=== PATIENT | female | born 1975 | race Caucasian/White ===

== ENCOUNTER 2019-10-08 07:44 | Outpatient (CLI) | payer BC, OTHER, SELFPAY ==
--- NOTE | 2019-10-08 08:06 | US_ITS ---
WS: [id number] RIGHT UPPER QUADRANT ULTRASOUND HISTORY: abdominal pain COMPARISON: None available. Liver: 16.8 cm in length. Normal echogenicity with no intrahepatic dilatation. Slightly elongated RI GHT lobe of liver may be a Jaylyn's lobe. No mass. Gallbladder: Normally distended gallbladder with no stones or wall thickening. CBD: 0.3 cm Pancreas: Normal size and echogenicity. Right kidney: 10.9 cm in length. Normal echogenicity with no mass or hydronephrosis. Aorta and IVC: Unremarkable. No ascites. US/US gall bladder [id number] IMPRESSION: Normal RIGHT upper quadrant ultrasound.
== END 2019-10-08 07:45 | disposition home or self-care (01) ==
LOC: RAD 07:51 → RADWPI 08:01
PROVIDERS: Family Provider Family Medicine; PCP Family Medicine; Visit Provider Surgery
DX: R10.9 Unspecified abdominal pain (principal)
CPT/HCPCS: 76705

== ENCOUNTER 2019-10-30 08:45 | Outpatient (CLI) | payer BC, SELFPAY ==
--- NOTE | 2019-10-30 08:53 | NM_ITS ---
WS: [id number] NUCLEAR MEDICINE HIDA SCAN WITH GALLBLADDER EJECTION FRACTION HISTORY: RIGHT UPPER QUADRANT PAIN COMPARISON: Gallbladder ultrasound 10/08/2019 TECHNIQUE: The patient was intravenously injected with 8.4 mCi of TC99m Mebrofenin. Immediate imaging over the right upper quadrant was followed by 5 minute image and additional images for a total of 60 minutes. Normal uptake of radiotracer throughout the liver. Activity identified in the gallbladder at 90 minutes and minimally distended. Activity in the proximal small bowel was seen by 20 minutes. Good washout of the radiotracer from the liver by 60 minutes. The patient then drank 8 ounces of Ensure Plus. Ejection fraction at 60 minutes was 93%. Normal GB ej ection fraction is 35-75%. Post fatty meal symptoms: None. NM/NM hepatobiliary w phar* [id number] IMPRESSION: 1. Normal HIDA scan. Slightly delay within gallbladder filling but still withi n normal limits. 2. Normal gallbladder ejection fraction.
== END 2019-10-30 08:46 | disposition home or self-care (01) ==
LOC: RAD 08:51
PROVIDERS: Family Provider Family Medicine; PCP Family Medicine; Visit Provider Surgery
DX: R10.11 Right upper quadrant pain (principal)
CPT/HCPCS: 78227; A9537

== ENCOUNTER 2019-11-09 06:09 | Day surgery (SDC) | payer BC, SELFPAY ==
[2019-11-06 14:21] VITALS: BMI 44.1
[2019-11-09] VITALS (9 sets, daily range): BP systolic 129–172; BP diastolic 86–98; PULSE 64–84; RESP 15–19; TEMP 36.3–36.6; O2SAT 94–100
--- NOTE | 2019-11-09 06:57 | W.PM.OPSUD ---
Surgery/Procedure H&P Update DATE OF PROCEDURE: November 09, 2019 DATE H&P PERFORMED: 11/06/19 H&P UPDATE INFORMATION: I have reviewed H&P completed within last 30 days, I have examined patient prior to procedure and No changes to prior documentation PREOP DIAGNOSIS: Cholecystitis PLANNED PROCEDURE: Operation Date: 11/09/19 08:10 Proposed Procedures p Laparoscopic Cholecystectomy [id number] R10.11(Not Applicable) - Aurelio Moreno MD s EGD(Not Applicable) - Aurelio Moreno MD
--- NOTE | 2019-11-09 07:00 | ANES.PREANE2 ---
Pre-Anesthetic Assessment Pre-Anesthetic Assessment: Height/Weight: Height 1.73 m Weight 131.542 kg Preop Diagnosis: Cholecystitis Proposed Procedure: Operation Date: 11/09/19 08:10 Proposed Procedures p Laparoscopic Cholecystectomy [id number] R10.11(Not Applicable) - Aurelio Moreno MD s EGD(Not Applicable) - Aurelio Moreno MD Familial anesthetic complications: none Was Beta Norris taken within 24 hours: N/A Last intake: NPO > 8 hrs Social: Social History: No alcohol and No tobacco Exam: Pre-Anes Outpt Exam: alert, oriented x 3, clear to auscultation bilaterally and regular rate & rhythm Airway: Cervical ROM: WNL MP: 2 Dentition: Chipped Additional comments: missing Pulmonary: Pulmonary: Asthma (No inhaler) CV/HEM: CV/HEM: HTN : Comments: hx of dehydration which caused some kidney dysfunction Hepatic: Hepatic: None reported GI: GI: None reported Metabolic: Metabolic: Morbid obesity Musc/skel: Musc/skel: None reported Neuropsych: Neuropsych: None reported Anesthetic Plan: ASA status: 2 Anesthesia: General Risk of > 500 ml blood loss (7ml/kg in children): No PFSH Anesthesia PFSH: Social History Smoking and tobacco status: former smoker Alcohol intake: current Alcohol intake frequency: holidays/special occasions only Female Reproductive History: Date of last menstrual period: 11/06/19 Data Anesthesia Cardiac Studies: No Data to Display
[2019-11-09] MEDS: sodium chloride 0.9% 1,000 ML 30 ML IV (07:09)
[2019-11-09 07:13] LABS: OR HCG Qualitative Urine Negative (Negative)
[2019-11-09] MEDS: levofloxacin-dextrose 5 % 500 MG/100 ML PREMIX 100 MG IV (08:16)
--- NOTE | 2019-11-09 09:24 | PM.OP ---
Operative Report Date of procedure: November 09, 2019 Pre-op Diagnosis: Chronic cholecystitis Post-op Diagnosis: Mild duodenitis on EGD Chronic cholecystitis Procedure Done: Laparoscopic cholecystectomy Esophagogastroduodenoscopy Pathology: Gallbladder Surgeon: Aurelio Moreno Anesthesia: General Estimated blood loss (mL): 10 Condition: stable Disposition: PACU Procedure: The patient has been to the operating room and intubated under general anesthesia after IV antibiotic had been administered. A bite-block was placed and a gastroscope was introduced and advanced up the second portion of the duodenum and slowly withdrawn. There was mild duodenitis noted in the first portion of the duodenum. The fundus, antrum, pylorus and body of stomach was normal. There was no abnormalities seen on retroflexion. The GE junction was at 40 cm, no distal esophageal changes. The gastroscope was withdrawn. Patient had a prior laparoscopic cholecystectomy and therefore a 5 mm port was introduced in the right upper quadrant using Optiview technique after pneumoperitoneum was created with Verres needle. After 15 mm of pneumoperitoneum had been created, a 10 mm port was placed through this incision in the anterior axillary line. 3 separate 5 mm ports were placed adjacent to the umbilicus and inferior to the costal margin in the midclavicular line and in the epigastric region under direct visualization. Ratcheted forceps were introduced to retract the fundus of the gallbladder cephalad and the infundibulum was retracted laterally. Using electrocautery the peritoneum over the Calot's triangle was opened and the cystic duct was skeletonized. The cystic artery was small and was divided using electrocautery. The dissection was carried superiorly and after ensuring critical view of safety, 4 titanium clips were placed on the cystic duct and cut leaving 3 clips on the remaining portion of the duct. The rest of the gallbladder was dissected off the liver using L-hook cautery. An Endo Catch bag was introduced and the gallbladder was removed. The fascia at the right upper quadrant 10 mm port site was closed using figure of eight 0 Vicryl suture. 10 cc of 0.5% Marcaine is infiltrated around the port sites. Subcutaneous tissues approximated using interrupted 3-0 Vicryl suture and skin was closed using running subcuticular 4-0 Monocryl suture and surgical glue. The patient was transferred to recovery room in stable condition.
--- NOTE | 2019-11-09 09:33 | SUR.PHASEI ---
0925 PATIENT TO PACU AT THIS TIME FROM OR. RR EVEN AND UNLABORED. SIMPLE MASK AT 8L, SPO2 98%. 4 INCISIONS TO ABDOMEN, CLOSED WITH EXOFIN, CDI.
[2019-11-09] MEDS: fentaNYL 50 mcg/mL INJ 2mL IVP (09:41)
--- NOTE | 2019-11-09 10:01 | SUR.PHASEI ---
0955 pt awake alert states pain is 5 but tolerable pt requests oral pain med and juice. handoff at bedside to LAUREEN SPANN.
[2019-11-09] MEDS: ondansetron 2 mg/ML SDV 2 mL 4 MG IVP (10:41)
--- NOTE | 2019-11-09 11:09 | SUR.PHASEII ---
MEDICATED FOR NAUSEA. PT WITH RELIEF. SPOUSE INFORMED OF PT'S CONDITION PER PT REQUEST.
== END 2019-11-09 11:44 | disposition home or self-care (01) ==
PROVIDERS: Family Provider Family Medicine; PCP Family Medicine; Visit Provider Surgery
PROC: 0FT44ZZ Resection of Gallbladder, Percutaneous Endoscopic Approach (ICD-10-PCS; CPT 47562; principal; 2019-11-09 08:00)
PROC: 0DJ08ZZ Inspection of Upper Intestinal Tract, Via Natural or Artificial Opening Endoscopic (ICD-10-PCS; CPT 43235; 2019-11-09 08:00)
DX: K80.10 Calculus of gallbladder with chronic cholecystitis without obstruction (principal); K29.80 Duodenitis without bleeding; I10 Essential (primary) hypertension; E66.01 Morbid (severe) obesity due to excess calories; Z68.41 Body mass index [BMI] 40.0-44.9, adult; Z87.891 Personal history of nicotine dependence; K21.9 Gastro-esophageal reflux disease without esophagitis
CPT/HCPCS: 43235; 47562; 12345; 81025; 84703; 88304; 96375; J1956; J2405; J2704; J2710; J3010; J3490; J7030

== ENCOUNTER → 2020-03-14 17:00 | Outpatient (BNVA) | payer BC, OTHER, SELFPAY | PROVIDERS: Family Provider Family Medicine; PCP Family Medicine; Visit Provider Family Medicine | DX: I10 Essential (primary) hypertension (principal); K21.9 Gastro-esophageal reflux disease without esophagitis; Z13.1 Encounter for screening for diabetes mellitus; R25.1 Tremor, unspecified; Z83.3 Family history of diabetes mellitus; J06.9 Acute upper respiratory infection, unspecified; Z13.6 Encounter for screening for cardiovascular disorders; Z11.59 Encounter for screening for other viral diseases; Z20.828 Contact with and (suspected) exposure to other viral communicable diseases; Z13.220 Encounter for screening for lipoid disorders | CPT/HCPCS: 80053; 80061; 83036; 87635 ==

== ENCOUNTER 2021-03-02 16:55 | Emergency (ER) | payer SELFPAY ==
[2021-03-02 17:16] VITALS: BP 145/86; PULSE 83; RESP 16; TEMP 36.8; O2SAT 98; BMI 43.0
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
[2021-03-02 18:10] VITALS: BP 149/81; PULSE 76; RESP 16; O2SAT 100
[2021-03-02 18:28] LABS: Basophils % 0.4 %; Eosinophils # 0.4 10^3/uL (0.0-0.8); Hematocrit 39.6 % (37.0-47.0); Hemoglobin 12.9 g/dL (11.5-15.3); Lymphocytes # 2.6 10^3/uL (0.8-4.8); Lymphocytes % 28.4 %; Mean Corpuscular HGB Conc 32.6 g/dL (30.0-36.0); Mean Corpuscular Hemoglobin 29.5 pg (28.0-34.0); Mean Corpuscular Volume 90.4 fl (81-99); Mean Platelet Volume 9.9 fL (7.4-10.4); Monocytes # 0.5 10^3/uL (0.2-0.9); Monocytes % 5.8 %; Neutrophils # 5.62 10^3/uL (1.8-7.7); Neutrophils % 61.2 %; Nucleated Red Blood Cells % 0 %; Platelet Count 287 10^3/cmm (130-400); Red Blood Count 4.38 10^6/uL (4.1-5.3); Red Cell Distribution Width 12.9 % (12.1-15.1); White Blood Count 9.2 10^3/uL (4.0-10.0)
[2021-03-02] MEDS: iohexol 300 mg/mL 100 mL Btl IV (18:37)
[2021-03-02 18:50] VITALS: RESP 18; O2SAT 100
[2021-03-02 18:50] LABS: HCG, Serum Qual Negative (Negative)
[2021-03-02] MEDS: morphine 4 mg/mL SDV 1 mL IVP (18:50)
[2021-03-02 18:53] VITALS: BP 159/70; PULSE 83; RESP 18; O2SAT 100
[2021-03-02 18:55] LABS: Alanine Aminotransferase 19 U/L (0-33); Alkaline Phosphatase 129 IU/L (35-105); Anion Gap 13.9 (5-19); Aspartate Amino Transferase 16 U/L (0-32); Blood Urea Nitrogen 17 mg/dL (6-20); Calcium 8.7 mg/dL (8.5-10.5); Carbon Dioxide 29 mmol/L (22-29); Chloride 104 mmol/L (98-107); Globulin 2.9 g/dL (1.3-4.6); Glomerular Filtration Rate 78.3 mL/min (90-130); Glucose 96 mg/dL (65-115); Osmolality Calculated 297 mOsm/kg (285-295); Potassium 3.9 mmol/L (3.5-5.1); Sodium 143 mmol/L (136-145); Total Bilirubin 0.2 mg/dL (0.15-1.2); Total Protein 6.9 g/dL (6.6-8.7)
[2021-03-02 19:11] VITALS: BP 159/70; PULSE 82; RESP 16; O2SAT 100
[2021-03-02 19:33] VITALS: BP 159/70; PULSE 82; RESP 18; O2SAT 100
== END 2021-03-02 19:40 | disposition home or self-care (01) ==
PROVIDERS: Emergency Provider Physician Assistant
DX: S13.4XXA Sprain of ligaments of cervical spine, initial encounter (principal); M54.9 Dorsalgia, unspecified; V50.5XXA Driver of pick-up truck or van injured in collision with pedestrian or animal in traffic accident, initial encounter; I10 Essential (primary) hypertension
CPT/HCPCS: 70450; 72125; 72131; 74177; 80053; 84703; 85025; 96374; 99284; J2270; Q9967

== ENCOUNTER → 2021-03-27 09:13 | Outpatient (BNVA) | payer BC, OTHER, SELFPAY | PROVIDERS: Visit Provider Family Medicine | DX: I10 Essential (primary) hypertension (principal); Z13.220 Encounter for screening for lipoid disorders; M54.9 Dorsalgia, unspecified; Z13.6 Encounter for screening for cardiovascular disorders; K21.9 Gastro-esophageal reflux disease without esophagitis; F51.01 Primary insomnia; G43.709 Chronic migraine without aura, not intractable, without status migrainosus | CPT/HCPCS: 80061 ==

== ENCOUNTER → 2021-09-25 10:40 | Outpatient (BNVA) | payer BC, OTHER, SELFPAY | PROVIDERS: PCP Family Medicine; Visit Provider Family Medicine | DX: I10 Essential (primary) hypertension (principal) | CPT/HCPCS: 80048 ==

== ENCOUNTER 2021-10-12 06:00 | Outpatient (RCR) | payer BC, SELFPAY | END 2021-10-28 23:59 | disposition home or self-care (01) | LOC: MPT 06:00 | PROVIDERS: PCP Family Medicine; Referring Provider Family Medicine; Visit Provider Family Medicine | DX: M54.16 Radiculopathy, lumbar region (principal) | CPT/HCPCS: 97110; 97162; G0283 ==

== ENCOUNTER 2021-10-29 | Outpatient (RCR) | payer BC, SELFPAY | END 2021-11-28 23:59 | disposition home or self-care (01) | LOC: MPT | PROVIDERS: PCP Family Medicine; Referring Provider Family Medicine; Visit Provider Family Medicine | DX: M54.16 Radiculopathy, lumbar region (principal) | CPT/HCPCS: 97110; G0283 ==

== ENCOUNTER 2021-11-29 06:00 | Outpatient (RCR) | payer BC, SELFPAY | END 2021-12-28 23:59 | disposition home or self-care (01) | LOC: MPT 06:00 | PROVIDERS: PCP Family Medicine; Referring Provider Family Medicine; Visit Provider Family Medicine | DX: M54.16 Radiculopathy, lumbar region (principal); M54.41 Lumbago with sciatica, right side | CPT/HCPCS: 97110; 97530; G0283 ==

== ENCOUNTER 2021-12-29 06:00 | Outpatient (RCR) | payer BC, SELFPAY | END 2022-01-28 23:59 | disposition home or self-care (01) | LOC: MPT 06:00 | PROVIDERS: PCP Family Medicine; Referring Provider Family Medicine; Visit Provider Family Medicine | DX: M54.31 Sciatica, right side (principal); M54.50 Low back pain, unspecified | CPT/HCPCS: 97110; G0283 ==

== ENCOUNTER 2022-01-23 08:25 | Outpatient (CLI) | payer BC, SELFPAY ==
--- NOTE | 2022-01-23 08:45 | MR_ITS ---
WS: [id number] MRI LUMBAR SPINE NONCONTRAST TECHNIQUE: Sagittal T1, T2 and STIR imaging. Axial T1 and T2 imaging. CLINICAL INFORMATION: M54.16 - Radiculopathy, lumbar region COMPARISON: CT March 02, 2021 FINDINGS: Mild lumbar curve. No acute compression. No high-grade central canal stenosis. L1-L2: Normal. L2-L3: No significant disc bulging. Mild facet arthropathy. Spinal canal and foramen are patent. L3-L4: No significant disc bulging. Mild facet arthropathy. Spinal canal and foramen are patent. L4-L5: Mild annular bulging with slight effacement of ventral thecal sac. RIGHT foraminal protrusion contacts the exiting right L4 nerve root with mild RIGHT foraminal narrowing. LEFT foramen is patent. Moderate facet arthropathy. L5-S1: Mild disc bulging with osteophytic ridging. Eccentric RIGHT disc bulging slightly encroaches o n the far exiting right L5 nerve root. Mild RIGHT foraminal narrowing. Spinal canal and foramen are p atent. Moderate facet arthropathy. Visualized pelvic bony structures: Normal. Paravertebral soft tissues: Normal. Mild disc bulging C5-C6 and C6-C7 with mild central canal stenosis. MR/MR lumbar spine wo con* [id number] IMPRESSION: 1. Small RIGHT foraminal protrusion L4-L5 contacts the exiting RIGHT L4 nerve root with mild RIGHT foraminal narrowing. 2. Disc osteophytic ridging L5-S1 contacts the far exiting RIGHT L5 nerve root . 3. No significant central canal stenosis. 4. Moderate facet arthropathy L4-L5 and L5-S1. 5. Mild central canal stenosis in the cervical spine port engineer imaging at C5-C6 an d C6-C7.
== END 2022-01-23 08:26 | disposition home or self-care (01) ==
LOC: RAD 08:27
PROVIDERS: PCP Family Medicine; Visit Provider Family Medicine
DX: M54.16 Radiculopathy, lumbar region (principal); M51.26 Other intervertebral disc displacement, lumbar region; M47.816 Spondylosis without myelopathy or radiculopathy, lumbar region; M47.817 Spondylosis without myelopathy or radiculopathy, lumbosacral region; M48.02 Spinal stenosis, cervical region
CPT/HCPCS: 72148

== ENCOUNTER 2022-01-31 08:53 | Outpatient (CLI) | payer BC, SELFPAY ==
--- NOTE | 2022-01-31 09:30 | MR_ITS ---
WS: [id number] MRA ANGIOGRAPHY [place] OF [place] HISTORY: G43.909 - Migraine, unspecified, not intractable, without... COMPARISON: None available. TECHNIQUE: 3-D MR angiography is performed of the [place] of [place]. All images are reviewed including source images. Distal vertebral and basilar arteries are intact with no significant stenosis or plaque. Posterior ce rebral arteries are normal course and caliber. Posterior communicating arteries are both patent. Intracranial portion of the internal carotid arteries are normal course and caliber. No significant a therosclerosis, stenosis or aneurysm identified. Middle and anterior cerebral arteries are both paten t with no significant disease. Anterior communicating artery is also normal. MR/MR angio head wo con [id number] IMPRESSION: Normal MRA [place] of [place]. No intracranial aneurysm.
== END 2022-01-31 08:54 | disposition home or self-care (01) ==
PROVIDERS: PCP Family Medicine; Visit Provider Specialist
DX: G43.909 Migraine, unspecified, not intractable, without status migrainosus (principal)
CPT/HCPCS: 70544

== ENCOUNTER → 2022-02-05 09:36 | Outpatient (BNVA) | payer BC, SELFPAY | PROVIDERS: PCP Family Medicine; Visit Provider Family Medicine | DX: I10 Essential (primary) hypertension (principal); K21.9 Gastro-esophageal reflux disease without esophagitis; M54.9 Dorsalgia, unspecified; F51.01 Primary insomnia; G43.709 Chronic migraine without aura, not intractable, without status migrainosus; J44.9 Chronic obstructive pulmonary disease, unspecified; M54.2 Cervicalgia; M48.02 Spinal stenosis, cervical region; M54.16 Radiculopathy, lumbar region; Z13.220 Encounter for screening for lipoid disorders; Z13.6 Encounter for screening for cardiovascular disorders | CPT/HCPCS: 80053; 80061; 85025 ==

== ENCOUNTER → 2022-03-08 14:47 | Outpatient (BNVA) | payer BC, SELFPAY | PROVIDERS: PCP Family Medicine; Visit Provider Physician Assistant | DX: M47.27 Other spondylosis with radiculopathy, lumbosacral region (principal); M47.816 Spondylosis without myelopathy or radiculopathy, lumbar region | CPT/HCPCS: 72110 ==

== ENCOUNTER 2022-03-15 06:00 | Outpatient (RCR) | payer BC, SELFPAY | END 2022-03-30 23:59 | disposition home or self-care (01) | LOC: MPT 06:00 | PROVIDERS: PCP Family Medicine; Visit Provider Physician Assistant | DX: M48.061 Spinal stenosis, lumbar region without neurogenic claudication (principal) | CPT/HCPCS: 97110; 97161; G0283 ==

== ENCOUNTER 2022-03-31 06:00 | Outpatient (RCR) | payer BC, SELFPAY | END 2022-04-30 23:59 | disposition home or self-care (01) | LOC: MPT 06:00 | PROVIDERS: PCP Family Medicine; Visit Provider Physician Assistant | DX: M48.061 Spinal stenosis, lumbar region without neurogenic claudication (principal) | CPT/HCPCS: 97110; G0283 ==

== ENCOUNTER → 2022-04-04 09:31 | Outpatient (BNVA) | payer BC, SELFPAY | PROVIDERS: PCP Family Medicine; Visit Provider Family Medicine | DX: F90.9 Attention-deficit hyperactivity disorder, unspecified type (principal); J20.8 Acute bronchitis due to other specified organisms; B96.89 Other specified bacterial agents as the cause of diseases classified elsewhere; J44.9 Chronic obstructive pulmonary disease, unspecified; Z11.59 Encounter for screening for other viral diseases; U07.1 COVID-19 | CPT/HCPCS: 87426 ==

== ENCOUNTER 2022-04-17 11:37 | Outpatient (CLI) | payer BC, SELFPAY ==
--- NOTE | 2022-04-17 11:45 | MR_ITS ---
WS: [id number] MRI CERVICAL SPINE NONCONTRAST HISTORY: M54.2 - Cervicalgia, headaches and chronic pain. COMPARISON: None available. Technique: Multiplanar, multisequence noncontrast imaging of the cervical spine. Straightening and slight reversal normal cervical lordosis centered at C5-6. No fractures or marrow e gonzález. Signal within the cervical cord is normal. Visualized posterior fossa is unremarkable. Craniocervical junction, C1 and C2 relationship, odontoid process and soft tissues are normal. C2-C3: Normal. C3-C4: Normal. C4-C5: Mild annular disc bulging. No stenosis. C5-C6: Broad-based moderate size central disc protrusion and mild facet arthritis. Disc osteophyte co mplexes extend into the neural foramina, LEFT greater than RIGHT. Mild encroachment upon the ventral thecal sac. Mild central and bilateral foraminal stenosis. Slightly greater encroachment upon the pro ximal LEFT foramen. C6-C7: Small central disc protrusion. No stenosis. C7-T1: Normal. Paraspinal soft tissue are normal. MR/MR cervical spin wo con* [id number] IMPRESSION: 1. Broad-based moderate size central disc protrusion at C5-6 with foraminal os teophytes. 2. Mild central and bilateral foraminal stenosis at C5-6 with greater encroach ment into the proximal LEFT foramen. 3. Small central disc protrusion at C6-7.
== END 2022-04-17 11:38 | disposition home or self-care (01) ==
PROVIDERS: PCP Family Medicine; Visit Provider Family Medicine
DX: G43.709 Chronic migraine without aura, not intractable, without status migrainosus (principal); M48.02 Spinal stenosis, cervical region; M50.223 Other cervical disc displacement at C6-C7 level
CPT/HCPCS: 72141

== ENCOUNTER → 2022-06-07 09:50 | Outpatient (BNVA) | payer BC, SELFPAY | PROVIDERS: PCP Family Medicine; Referring Provider Family Medicine; Visit Provider Orthopaedic Surgery | DX: M54.2 Cervicalgia (principal); M48.02 Spinal stenosis, cervical region; M25.78 Osteophyte, vertebrae | CPT/HCPCS: 72050 ==

== ENCOUNTER 2022-06-20 06:00 | Outpatient (RCR) | payer BC, SELFPAY | END 2022-06-30 23:59 | disposition home or self-care (01) | LOC: MPT 06:00 | PROVIDERS: PCP Family Medicine; Visit Provider Orthopaedic Surgery | DX: M54.2 Cervicalgia (principal) | CPT/HCPCS: 97110; 97161; G0283 ==

== ENCOUNTER 2022-07-01 06:00 | Outpatient (RCR) | payer BC, SELFPAY | END 2022-07-31 23:59 | disposition home or self-care (01) | LOC: MPT 06:00 | PROVIDERS: PCP Family Medicine; Visit Provider Orthopaedic Surgery | DX: M54.2 Cervicalgia (principal) | CPT/HCPCS: 97110; 97140; G0283 ==

== ENCOUNTER 2022-08-01 06:00 | Outpatient (RCR) | payer BC, SELFPAY | END 2022-08-28 23:59 | disposition home or self-care (01) | LOC: MPT 06:00 | PROVIDERS: PCP Family Medicine; Visit Provider Orthopaedic Surgery | DX: M54.2 Cervicalgia (principal) | CPT/HCPCS: 97110; 97140; G0283 ==

== ENCOUNTER 2022-08-29 06:00 | Outpatient (RCR) | payer BC, SELFPAY | END 2022-09-28 23:59 | disposition home or self-care (01) | LOC: MPT 06:00 | PROVIDERS: PCP Family Medicine; Visit Provider Orthopaedic Surgery | DX: M54.2 Cervicalgia (principal) | CPT/HCPCS: 97110; 97140; G0283 ==

== ENCOUNTER 2022-09-29 06:00 | Outpatient (RCR) | payer BC, SELFPAY | END 2022-10-28 23:59 | disposition home or self-care (01) | LOC: MPT 06:00 | PROVIDERS: PCP Family Medicine; Visit Provider Orthopaedic Surgery | DX: M54.2 Cervicalgia (principal) | CPT/HCPCS: 97110; 97140; G0283 ==

== ENCOUNTER 2022-10-29 06:00 | Outpatient (RCR) | payer BC, SELFPAY | END 2022-11-28 23:59 | disposition home or self-care (01) | LOC: MPT 06:00 | PROVIDERS: PCP Family Medicine; Visit Provider Orthopaedic Surgery | DX: M54.2 Cervicalgia (principal) | CPT/HCPCS: 97110; 97140; G0283 ==

== ENCOUNTER 2022-11-16 07:36 | Outpatient (CLI) | payer BC, SELFPAY ==
--- NOTE | 2022-11-16 08:15 | USCV_ITS ---
Marce Rockwell Age: 47 Gender: F : 1975 Exam Date: 11/16/2022 07:55 Ordering Phys: Connie Peguero MD Technologist: Izzy Moser [place] [facility] [place]ication: HISTORY OF LEAKING VALVES BP: 130 / 80 HR: 79 Rhythm: Sinus Technical Quality: Adequate MEASUREMENTS (Male / Female) Normal Values 2D ECHO LV Diastolic Diameter PLAX 4.1 cm 4.2 - 5.9 / 3.9 - 5.3 cm LV Systolic Diameter PLAX 3.3 cm LV Chamber Size 4.1 cm IVS Diastolic Thickness 0.9 cm 0.6 - 1.0 / 0.6 - 0.9 cm IVS Systolic Thickness 1.3 cm LVPW Diastolic Thickness 1.0 cm 0.6 - 1.0 / 0.6 - 0.9 cm LVPW Systolic Thickness 1.6 cm RV Chamber Size 3.4 cm LVOT Diameter 2.0 cm LV Ejection Fraction 2D Teich 32.9 % LV Ejection Fraction MOD 2C 56.8 % LV Ejection Fraction 2C AL 54.9 % LA Diameter 3.5 cm LA Width 4.2 cm LA Height 3.6 cm RA Width 3.5 cm RA Height 4.5 cm Aorta at Sinotubular Diameter 2.8 cm IVC Diameter 1.8 cm M-MODE Aortic Annulus Diameter 3.1 cm LA Ao Ratio MM 1.6 MV E Point Septal Separation 0.8 cm DOPPLER AV Peak Velocity 163.0 cm/s LVOT Peak Velocity 117.0 cm/s AV Area Cont Eq vti 2.2 cm squared AV Area Cont Eq pk 2.3 cm squared MV Peak Velocity 114.0 cm/s MV Area PHT 4.3 cm squared Mitral E to A Ratio 1.1 MV E' Velocity 52.5 cm/s Mitral E to MV E' Ratio 8.1 Mitral E to LV E' Lateral Ratio 8.1 Mitral E to LV E' Septal Ratio 8.1 TR Peak Velocity 235.5 cm/s TR Peak Gradient 22.2 mmHg TR Mean Velocity 192.1 cm/s TR Mean Gradient 16.1 mmHg TR Velocity Time Integral 92.7 cm TV Peak E Velocity 76.0 cm/s Right Atrial Pressure 3.0 mmHg Pulmonary Artery Systolic Pressu 25.2 mmHg RV Acceleration Time 0.1 s RV Ejection Time 0.4 s RV AcT/ET 0.3 FINDINGS Left Ventricle Left ventricle is normal in size. LV systolic function is normal with EF of 55 to 60%. No regional wall motion abnormalities are seen. Right Ventricle Normal in size and function Right Atrium Normal in size Left Atrium Normal in size Mitral Valve Structurally normal mitral valve. Mild mitral regurgitation. Aortic Valve Structurally normal aortic valve. No significant stenosis or regurgitation is seen. Tricuspid Valve Mild tricuspid regurgitation. Pulmonary artery systolic pressure is normal. Pulmonic Valve Not well-visualized Pericardium Normal Aorta Normal in size IVC Appears to be normal CONCLUSIONS LV systolic function is normal with EF 55 to 60%. Mild tricuspid regurgitation. Mild mitral regurgitation No comparison studies are available Jese Wang MD (Electronically Signed) Final Date: 23 Nov 2022 16:42 S
== END 2022-11-16 07:37 | disposition home or self-care (01) ==
PROVIDERS: PCP Family Medicine; Visit Provider Family Medicine
DX: I10 Essential (primary) hypertension (principal); I08.1 Rheumatic disorders of both mitral and tricuspid valves
CPT/HCPCS: 93306

== ENCOUNTER 2022-11-29 06:00 | Outpatient (RCR) | payer BC, SELFPAY | END 2022-12-28 23:59 | disposition home or self-care (01) | LOC: MPT 06:00 | PROVIDERS: PCP Family Medicine; Visit Provider Orthopaedic Surgery | DX: M54.2 Cervicalgia (principal) | CPT/HCPCS: 97110; 97140; G0283 ==

== ENCOUNTER 2022-12-29 06:00 | Outpatient (RCR) | payer BC, SELFPAY | END 2023-01-28 23:59 | disposition home or self-care (01) | LOC: MPT 06:00 | PROVIDERS: PCP Family Medicine; Visit Provider Orthopaedic Surgery | DX: M54.2 Cervicalgia (principal) | CPT/HCPCS: 97110; 97140; G0283 ==

== ENCOUNTER 2023-01-29 06:00 | Outpatient (RCR) | payer BC, SELFPAY | END 2023-02-28 23:59 | disposition home or self-care (01) | LOC: MPT 06:00 | PROVIDERS: PCP Family Medicine; Visit Provider Orthopaedic Surgery | DX: M54.2 Cervicalgia (principal) | CPT/HCPCS: 97110; 97140; G0283 ==

== ENCOUNTER 2023-03-01 06:00 | Outpatient (RCR) | payer BC, SELFPAY | END 2023-03-30 23:59 | disposition home or self-care (01) | LOC: MPT 06:00 | PROVIDERS: PCP Family Medicine; Visit Provider Orthopaedic Surgery | DX: M54.2 Cervicalgia (principal) | CPT/HCPCS: 97110; G0283 ==

== ENCOUNTER → 2023-03-06 15:17 | Outpatient (BNVA) | payer BC, SELFPAY | PROVIDERS: PCP Family Medicine; Visit Provider Family Medicine | DX: F51.01 Primary insomnia (principal); G43.709 Chronic migraine without aura, not intractable, without status migrainosus; J20.8 Acute bronchitis due to other specified organisms; B96.89 Other specified bacterial agents as the cause of diseases classified elsewhere; I10 Essential (primary) hypertension; M54.9 Dorsalgia, unspecified; K21.9 Gastro-esophageal reflux disease without esophagitis; F41.1 Generalized anxiety disorder; M54.2 Cervicalgia; I38 Endocarditis, valve unspecified; Z12.11 Encounter for screening for malignant neoplasm of colon; Z13.220 Encounter for screening for lipoid disorders; Z13.6 Encounter for screening for cardiovascular disorders | CPT/HCPCS: 80053; 80061 ==

== ENCOUNTER 2023-03-31 06:00 | Outpatient (RCR) | payer BC, SELFPAY | END 2023-04-30 23:59 | disposition home or self-care (01) | LOC: MPT 06:00 | PROVIDERS: PCP Family Medicine; Visit Provider Orthopaedic Surgery | DX: M54.2 Cervicalgia (principal) | CPT/HCPCS: 97110; 97140; G0283 ==

== ENCOUNTER 2023-05-01 06:00 | Outpatient (RCR) | payer BC, SELFPAY | END 2023-05-30 23:59 | disposition home or self-care (01) | LOC: MPT 06:00 | PROVIDERS: PCP Family Medicine; Visit Provider Orthopaedic Surgery | DX: M54.2 Cervicalgia (principal) | CPT/HCPCS: 97110; 97140; G0283 ==

== ENCOUNTER 2023-05-31 06:00 | Outpatient (RCR) | payer BC, SELFPAY | END 2023-06-30 23:59 | disposition home or self-care (01) | LOC: MPT 06:00 | PROVIDERS: PCP Family Medicine; Visit Provider Orthopaedic Surgery | DX: M54.2 Cervicalgia (principal) | CPT/HCPCS: 97110; 97140; G0283 ==

== ENCOUNTER 2023-07-27 07:02 | Observation (INO) | payer OTHER, SELFPAY ==
[2023-07-27] VITALS (17 sets, daily range): BP systolic 74–168; BP diastolic 46–100; PULSE 82–138; RESP 16–22; TEMP 36.2–37; O2SAT 95–100; BMI 45.7
--- NOTE | 2023-07-27 07:14 | CTR_ITS ---
PROCEDURE INFORMATION: Exam: CT Abdomen And Pelvis With Contrast Exam date and time: 07/27/2023 8:43 AM Age: 47 years old Clinical indication: Abdominal pain; Localized; Right lower quadrant (rlq); Prior surgery; Surgery date: 6+ months; Surgery type: Tubal hernia; Additional info: Rlq abd pain TECHNIQUE: Imaging protocol: Computed tomography of the abdomen and pelvis with contrast. Radiation optimization: All CT scans at this facility use at least one of these dose optimization techniques: automated exposure control; mA and/or kV adjustment per patient size (includes targeted exams where dose is matched to clinical indication); or iterative reconstruction. Contrast material: OMNI 350; Contrast volume: 100 ml; Contrast route: INTRAVENOUS (IV); COMPARISON: CT abdomen pelvis w con* [id number] 03/02/2021 6:32 PM RADIATION DOSE METRICS: Total DLP (mGy-cm): 1145.23 FINDINGS: Liver: Normal. No mass. Gallbladder and bile ducts: Status post cholecystectomy. Pancreas: Normal. No ductal dilation. Spleen: Normal. No splenomegaly. Adrenal glands: Normal. No mass. Kidneys and ureters: Normal. No hydronephrosis. Stomach and bowel: Unremarkable. No obstruction. No mucosal thickening. Appendix: The appendix is mildly dilated at 11 mm and there is slight periappendiceal stranding. Mild acute appendicitis is present. Intraperitoneal space: Unremarkable. No free air. No significant fluid collection. Vasculature: Unremarkable. No abdominal aortic aneurysm. Lymph nodes: Unremarkable. No enlarged lymph nodes. Urinary bladder: There is a small amount of gas within the urinary bladder, presumably related to recent instrumentation. Reproductive: Unremarkable as visualized. Bones/joints: Unremarkable. No acute fracture. Soft tissues: Unremarkable. CT/CT abdomen pelvis w con* [id number] IMPRESSION: Mild acute appendicitis.
[2023-07-27 07:49] LABS: Basophils % 0.2 %; Eosinophils # 0.5 10^3/uL (0.0-0.8); Eosinophils % 4.5 %; Hematocrit 38.3 % (36-47); Lymphocytes # 1.7 10^3/uL (0.8-4.8); Lymphocytes % 17.3 %; Mean Corpuscular HGB Conc 33.4 g/dL (30-55); Mean Corpuscular Hemoglobin 28.6 pg (27-33); Mean Corpuscular Volume 85.5 fl (85-98); Monocytes # 0.8 10^3/uL (0.2-0.9); Monocytes % 8.3 %; Neutrophils # 6.93 10^3/uL (1.8-7.7); Neutrophils % 69.5 %; Nucleated Red Blood Cells % 0 %; Platelet Count 231 10^3/cmm (157-399); Red Blood Count 4.48 10^6/uL (3.85-5.65); White Blood Count 9.98 10^3/uL (3.29-11.43)
--- NOTE | 2023-07-27 07:49 | W.ED.ABDPA2 ---
HPI - Abdominal Pain General: Chief Complaint: Abdominal Pain Stated Complaint: right side abd pain, n/v Time Seen by Provider: 07/27/23 07:13 History of Present Illness: 47-year-old female presents emergency department complaints of right lower quadrant abdominal pain that started yesterday. She states it is continued to progress overnight and is constant and she describes the pain as a sharp 7 or 8 out of 10. She states she has had her gallbladder removed previously. She does have associated nausea she does appear to be in acute pain at present. Patient states she has had nothing to eat since approximately 6 PM last night. Associated Symptoms: Reports nausea; Denies constipation and vomiting Review of Systems General: Reports: 10 or more systems reviewed and unremarkable except in HPI and below GI: Reports: abdominal pain and nausea; Denies: vomiting or constipation PFSH ED PFSH: Medical History Chronic migraine Hypertension GERD (gastroesophageal reflux disease) Migraine Surgical History H/O esophagogastroduodenoscopy (11/09/19) Mild duodenitis Status post laparoscopic cholecystectomy (11/09/19) H/O foot surgery History of tubal ligation History of delivery History of dilatation and curettage History of tonsillectomy History of umbilical hernia repair Family History Mother Cancer Diabetes Father Cancer Diabetes Denies family history of Anesthesia complication Social History Smoking and tobacco/nicotine status: former use of tobacco/nicotine Second hand smoke exposure: Yes Alcohol intake: current Alcohol intake frequency: holidays/special occasions only Alcohol type: wine Substance/Drug Use: never Female Reproductive History: Spontaneous abortions: No Physical Exam Narrative: EXAM NARRATIVE: Constitutional: the patient appears well nourished and of normal development. Vital signs as documented. No acute distress at present. Alert and oriented-to person, place, time and situation. Head, eyes, ears, nose, mouth, throat: Normocephalic, atraumatic. Pupils-equal, round, reactive to light. No scleral icterus. Normal-appearing external ears. Normal appearing nasal turbinates, no drainage. No obvious oral lesions, posterior oropharynx without erythema or exudates. Neck: Supple, trachea is midline, no lymphadenopathy, no jugular venous distension, thyromegaly, or carotid bruits. Carotid upstrokes are brisk bilaterally. Lungs: clear to auscultation to all lung garcia. Symmetrical rise and fall of chest, no obvious signs of increased work of breathing at present. Cardiac: Regular rate and rhythm, positive S1, S2. No murmurs, rubs or gallops that I can appreciate Abdomen: Soft, significant tenderness to light palpation to the right lower quadrant and periumbilical region., normal active bowel sounds to all quadrants. No palpable masses, no organomegaly and abdominal bruits. Extremities: 2+ pulses in the upper extremities that are equal bilaterally, 2+ pulses in the lower extremities that are equal bilaterally. Non-edematous. Moves all extremities well, sensation to all extremities are noted. Skin: Warm, dry, intact. Course Reevaluation(s): Reevaluation #1: I discussed the patient's laboratory findings as well as her CT scan findings and reassessed her after she received her nausea and pain medication and IV fluids she states she does feel slightly better and she now rates her pain a 5 out of 10. I did advise her that she had an acute appendicitis and that I would contact the on-call general surgeon for additional evaluation intervention and admission. Patient was in agreement with the plan of care. Time: 09:16 Vital Signs: Vital signs: Vital Signs Temperature 98.6 F 07/27/23 07:11 Pulse Rate 100 07/27/23 07:11 Respiratory Rate 20 H 07/27/23 07:11 Blood Pressure 142/100 07/27/23 07:11 Pulse Oximetry 96 07/27/23 07:11 Oxygen Delivery Me thod Room Air 07/27/23 07:11 MDM - Abdominal Pain Medical Decision Making Physical exam completed and documented, I will obtain laboratory evaluation to include a CBC, CMP, lipase, urinalysis, and a CT scan of the patient's abdomen pelvis to evaluate for possible differential diagnosis of bowel obstruction, incarcerated hernia, abdominal wall strain, abdominal wall hematoma, constipation, acute appendicitis. I will provide the patient IV access and IV fluid. Medical Records I reviewed the patient's medical records. Lab Data I reviewed the patient's lab results. 07/27/23 07:30 07/27/23 07:30 Labs/Radiology: Radiology Impressions Abdomen/Pelvis CT 07/27/23 07:14 IMPRESSION: Mild acute appendicitis. ADDENDUM: 07/27/23 0909 THIS REPORT CONTAINS FINDINGS THAT MAY BE CRITICAL TO PATIENT CARE. The findings were verbally communicated via telephone conference with LIZA BACK at 9:07 AM INSTRUCTIONAL SUPPORT ASSISTANT on 07/27/2023. The findings were acknowledged and understood. Laboratory Results WBC 9.98 10^3/uL (3.29-11.43) 07/27/23 07:30 RBC 4.48 10^6/uL (3.85-5.65) 07/27/23 07:30 Hgb 12.80 g/dL (11.27-16.99) 07/27/23 07:30 Hct 38.3 % (36-47) 07/27/23 07:30 MCV 85.5 fl (85-98) 07/27/23 07:30 MCH 28.6 pg (27-33) 07/27/23 07:30 MCHC 33.4 g/dL (30-55) 07/27/23 07:30 RDW 13.0 % (12.1-15.1) 07/27/23 07:30 Plt Count 231 10^3/cmm (157-399) 07/27/23 07:30 MPV 10.0 fL (7.4-10.4) 07/27/23 07:30 Neut % (Auto) 69.5 % 07/27/23 07:30 Lymph % (Auto) 17.3 % 07/27/23 07:30 [place] % (Auto) 8.3 % 07/27/23 07:30 Eos % (Auto) 4.5 % 07/27/23 07:30 Baso % (Auto) 0.2 % 07/27/23 07:30 Neut # (Auto) 6.93 10^3/uL (1.8-7.7) 07/27/23 07:30 Lymph # (Auto) 1.7 10^3/uL (0.8-4.8) 07/27/23 07:30 [place] # (Auto) 0.8 10^3/uL (0.2-0.9) 07/27/23 07:30 Eos # (Auto) 0.5 10^3/uL (0.0-0.8) 07/27/23 07:30 Baso # (Auto) 0.0 10^3/uL (0.0-0.1) 07/27/23 07:30 Nucleated RBC % (auto) 0 % 07/27/23 07:30 Nucleated RBCs # 0.0 /100WBC 07/27/23 07:30 Sodium 141 mmol/L (136-145) 07/27/23 07:30 Potassium 3.3 mmol/L (3.5-5.1) L 07/27/23 07:30 Chloride 104 mmol/L (98-107) 07/27/23 07:30 Carbon Dioxide 27 mmol/L (22-29) 07/27/23 07:30 Anion Gap 13.3 (5-19) 07/27/23 07:30 BUN 17 mg/dL (6-20) 07/27/23 07:30 Creatinine 0.7 mg/dL (0.5-0.9) 07/27/23 07:30 GFR Calculation 90.5 mL/min (90-130) 07/27/23 07:30 Glucose 116 mg/dL (65-115) H 07/27/23 07:30 Calculated Osmolality 295 mOsm/kg (285-295) 07/27/23 07:30 Calcium 9.2 mg/dL (8.5-10.5) 07/27/23 07:30 Total Bilirubin 0.5 mg/dL (0.15-1.2) 07/27/23 07:30 AST 24 U/L (0-32) 07/27/23 07:30 ALT 31 U/L (0-33) 07/27/23 07:30 Alkaline Phosphatase 162 U/L (35-105) H 07/27/23 07:30 Total Protein 6.8 g/dL (6.6-8.7) 07/27/23 07:30 Albumin 3.6 g/dL (3.5-5.2) 07/27/23 07:30 Globulin 3.2 g/dL (1.3-4.6) 07/27/23 07:30 Lipase 8 U/L (13-60) L 07/27/23 07:30 HCG, Qual Negative (Negative) 07/27/23 07:38 Urine Color Yellow (Yellow) 07/27/23 07:38 Urine Appearance Clear (CLEAR) 07/27/23 07:38 Urine pH 8 (5-7) H 07/27/23 07:38 Ur Specific [place] 1.010 (1.005-1.030) 07/27/23 07:38 Urine Protein Neg (Negative) 07/27/23 07:38 Urine Glucose (UA) Norm (Normal) 07/27/23 07:38 Urine Ketones Negative (Negative) 07/27/23 07:38 Urine Blood Neg (Negative) 07/27/23 07:38 Urine Nitrate Negative (Negative) 07/27/23 07:38 Urine Bilirubin Neg (Negative) 07/27/23 07:38 Prot Sulfosalicylic Acd Negative (Negative) 07/27/23 07:38 Urine Urobilinogen Norm mg/dL (Negative) 07/27/23 07:38 Ur Leukocyte Esterase Negative (Negative) 07/27/23 07:38 All radiology interpretation(s) finalized by discharge Discharge Plan Discharge Patient Disposition: Placed in Observation Clinical Impression: Acute appendicitis, Abdominal pain Condition: Stable Prescriptions: No Action topiramate 50 mg tablet 50 mg PO BID 30 Days Qty: 60 2RF naproxen sodium 220 mg tablet 220 mg PO Q8H PRN amitriptyline 50 mg tablet 50 mg PO .at bedtime 90 Days Qty: 90 1RF albuterol sulfate [ProAir HFA] 90 mcg/actuation HFA aerosol inhaler 2 puff inhalation QID PRN (Reason: shortness of breath or wheezing) 30 Days Qty: 18 5RF hydrochlorothiazide 25 mg tablet 25 mg PO DAILY 90 Days Qty: 90 1RF celecoxib 100 mg capsule 100 mg PO BID PRN (Reason: pain) 30 Days Qty: 60 5RF Rx Instructions: WITH FOOD cyclobenzaprine 10 mg tablet 10 mg PO TID PRN (Reason: muscle spasm) 30 Days Qty: 90 5RF metoprolol succinate 100 mg tablet extended release 24 hr 100 mg PO DAILY 90 Days Qty: 90 1RF pantoprazole 40 mg tablet,delayed release (DR/EC) 40 mg PO BID 90 Days Qty: 180 1RF sertraline [Zoloft] 25 mg tablet 25 mg PO DAILY 90 Days Qty: 90 1RF Botox 100 unit recon soln 155 unit IM ONCE Qty: 2 0RF diazepam 10 mg tablet 10 mg PO ONCE PRN (Reason: anxiety) Qty: 2 0RF Rx Instructions: Take 1 hour prior to each procedure. Botox 100 unit recon soln 155 unit SUBCUT ONCE Qty: 2 0RF Referrals: Connie Peguero MD [Primary Care Provider] - Coding Level of Care Code ED Sales Project Coordinator for Marvin Al
[2023-07-27 07:55] LABS: HCG Qualitative Urine. Negative (Negative)
[2023-07-27 08:03] LABS: Add Urine Microscopic? NO; Charge for UA Resulting for Rev
[2023-07-27 08:05] LABS: Bilirubin Urine Neg (Negative); Blood Urine Neg (Negative); Glucose Urine UA Norm (Normal); Ketones Urine Negative (Negative); Leukocyte Esterase Urine Negative (Negative); Nitrate Urine Negative (Negative); Protein Urine Neg (Negative); Sulfosalicylic Acid Urine Negative (Negative); Urine Appearance Clear (CLEAR); Urine Color Yellow (Yellow); Urobilinogen Urine Norm (Negative); pH Urine 8 (5-7)
[2023-07-27 08:08] LABS: Alanine Aminotransferase 31 U/L (0-33); Albumin Level 3.6 g/dL (3.5-5.2); Alkaline Phosphatase 162 U/L (35-105); Anion Gap 13.3 (5-19); Aspartate Amino Transferase 24 U/L (0-32); Blood Urea Nitrogen 17 mg/dL (6-20); Calcium 9.2 mg/dL (8.5-10.5); Carbon Dioxide 27 mmol/L (22-29); Chloride 104 mmol/L (98-107); Globulin 3.2 g/dL (1.3-4.6); Glomerular Filtration Rate 90.5 mL/min (90-130); Glucose 116 mg/dL (65-115); Lipase 8 U/L (13-60); Osmolality Calculated 295 mOsm/kg (285-295); Potassium 3.3 mmol/L (3.5-5.1); Sodium 141 mmol/L (136-145); Total Bilirubin 0.5 mg/dL (0.15-1.2); Total Protein 6.8 g/dL (6.6-8.7)
[2023-07-27] MEDS: ondansetron 2 mg/ML SDV 2 mL 4 MG IVP (08:11)
[2023-07-27] MEDS: ketorolac 30 mg/mL INJ IVP ×3 (08:11→18:20)
[2023-07-27] MEDS: sodium chloride 0.9% 1,000 ML 999 ML IV (08:13)
[2023-07-27] MEDS: iohexol 350 mg/mL 500 mL Btl (per mL) IV (08:55)
--- NOTE | 2023-07-27 10:03 | P.HP_ITS ---
Providers/Chief Complaint 2 Primary Care Provider: Connie Peguero MD Chief Complaint: right side abd pain, n/v History of Present Illness Marce Rockwell is a 47 year old female who presents to the hospital with a 1 day history of right lower quadrant abdominal pain nausea and vomiting. She denies any hematemesis, diarrhea, constipation, hematochezia and/or melena. The pain is sharp and constant and does not radiate. Palpation makes pain worse. Nothing makes pain better. CT the abdomen pelvis shows acute appendicitis. Review of Systems 2 General: Reports: 10 or more systems reviewed and unremarkable except in HPI and below Medications/Allergies Home Medications Medication Instructions Recorded Confirmed Last Taken Type naproxen sodium 220 mg tablet 220 mg PO Q8H PRN 04/11/22 07/11/23 Unknown History onabotulinumtoxinA 100 unit 155 unit SUBCUT ONCE #2 ea 02/27/23 07/11/23 Unknown Rx solution for injection (Botox) albuterol sulfate 90 mcg/actuation 2 puff inhalation QID PRN 03/06/23 07/11/23 Unknown Rx aerosol inhaler (ProAir HFA) shortness of breath or wheezing 30 days #18 grams amitriptyline 50 mg tablet 50 mg PO .at bedtime 90 days #90 03/06/23 07/11/23 Unknown Rx tabs celecoxib 100 mg capsule 100 mg PO BID PRN pain 30 days #60 03/06/23 07/11/23 Unknown Rx caps cyclobenzaprine 10 mg tablet 10 mg PO TID PRN muscle spasm 30 03/06/23 07/11/23 Unknown Rx days #90 tabs hydrochlorothiazide 25 mg tablet 25 mg PO DAILY 90 days #90 tabs 03/06/23 07/11/23 Unknown Rx metoprolol succinate 100 mg 100 mg PO DAILY 90 days #90 tabs 03/06/23 07/11/23 Unknown Rx tablet,extended release 24 hr pantoprazole 40 mg tablet,delayed 40 mg PO BID 90 days #180 tabs 03/06/23 07/11/23 Unknown Rx release sertraline 25 mg tablet (Zoloft) 25 mg PO DAILY 90 days #90 tabs 03/06/23 07/11/23 Unknown Rx diazepam 10 mg tablet 10 mg PO ONCE PRN anxiety #2 tabs 05/02/23 07/11/23 Unknown Rx topiramate 50 mg tablet 50 mg PO BID pain 30 days #60 tabs 06/12/23 07/11/23 Unknown Rx Allergies Allergy/AdvReac Type Severity Reaction Status Date / Time Penicillins Allergy Severe ALGY-Anaphy Verified 07/11/23 11:35 laxis PFSH Acute 2 PFSH: Medical History Chronic migraine Hypertension GERD (gastroesophageal reflux disease) Migraine Surgical History H/O esophagogastroduodenoscopy (11/09/19) Mild duodenitis Status post laparoscopic cholecystectomy (11/09/19) H/O foot surgery History of tubal ligation History of delivery History of dilatation and curettage History of tonsillectomy History of umbilical hernia repair Family History Mother Cancer Diabetes Father Cancer Diabetes Denies family history of Anesthesia complication Social History Smoking and tobacco/nicotine status: former use of tobacco/nicotine Second hand smoke exposure: Yes Alcohol intake: current Alcohol intake frequency: holidays/special occasions only Alcohol type: wine Substance/Drug Use: never Female Reproductive History: Spontaneous abortions: No Vitals/I&O/Wt Last Vital Signs Temp 98.6 F 07/27/23 07:11 Pulse 100 07/27/23 07:11 Resp 20 H 07/27/23 07:11 BP 142/100 07/27/23 07:11 Pulse Ox 96 07/27/23 07:11 O2 Del Method Room Air 07/27/23 07:11 Weight last 48 hrs Weight 292 lb Physical Exam 2 Narrative: General : Patient is well developed , no acute distress, oriented x3 Head : Normal cephalic, a-traumatic. Ears : Pinnae and external canal are normal. Hearing is normal. Eyes : PERRLA, Sclera and injection are normal. No conjunctival discharge. Nose : Mucous membranes are without erythema. Throat : buccal mucosa is normal, gums are without significant recession or hypertrophy. Lungs : Equal chest rise bilaterally, no use of accessory muscles, trachea is midline. Cor : Rate and rhythm are normal. Abdomen : Soft, ND, Tender to palpation right lower quadrant, positive Rovsing's, no g/r/m Extremities : No edema, no cyanosis or clubbing, dorsalis pedis pulses are present bilaterally, non-tender to palpation of calves. Upper extremities are normal bilaterally. Back : non-tender to palpation, no CVA tenderness. Neuro : CN II - XII intact, Upper and lower extremities have equal and full strength Data 07/27/23 07:30 07/27/23 07:30 A&P Assessment and plan (1) Acute appendicitis: Qualifiers: Acute appendicitis type: with localized peritonitis Appendicitis abscess presence: without abscess Appendicitis gangrene presence: without gangrene Appendicitis perforation presence: without perforation Qualified Code(s): K35.30 - Acute appendicitis with localized peritonitis, without perforation or gangrene Plan Laparoscopic Appendectomy The risks and benefits of the procedure, including but not limited to, bleeding, infection, scar, numbness, pain, damage to surrounding structures, conversion to an open procedure, were explained to the patient. He is understanding of the risks and wishes to proceed. Attestations 2 Medical Necessity Statement*: Patient requires at least 1 night in the hospital for recovery and antibiotics after laparoscopic appendectomy Coding Level of Care Code 71876 Diagnoses Acute appendicitis K35.30 Acute appendicitis type: with localized peritonitis Appendicitis abscess presence: without abscess Appendicitis gangrene presence: without gangrene Appendicitis perforation presence: without perforation
[2023-07-27] MEDS: HYDROmorphone 1 mg/mL INJ 1 mL (10:05)
--- NOTE | 2023-07-27 10:07 | P.ANESASSM_ITS ---
Pre-Anesthetic Assessment Height/Weight: Height 1.7 m Weight 132.449 kg Temp Pulse Resp BP Pulse Ox O2 Del Method 98.6 F 100 20 H 142/100 96 Room Air 07/27/23 07:11 07/27/23 07:11 07/27/23 07:11 07/27/23 07:11 07/27/23 07:11 07/27/23 07:11 Operation Date: 07/27/23 11:00 Proposed Procedures p Laparoscopic Cholecystectomy(Right) - Danis Izquierdo DO Familial anesthetic complications: None Was Beta Norris taken within 24 hours: N/A Was Clonidine taken within 24 hours: N/A Last intake: > 8hrs Social No alcohol and No tobacco Exam alert, oriented x 3, clear to auscultation bilaterally and regular rate & rhythm Airway Mallampati: Class III Dentition: false Pulmonary Asthma CV/HEM Hypertension GI Gastroesophageal Reflux Disease Anesthetic Plan ASA status: 3 Anesthesia: General Risk of > 500 ml blood loss (7ml/kg in children): No Medications/Allergies Home Medications Medication Instructions Recorded Confirmed Last Taken Type naproxen sodium 220 mg tablet 220 mg PO Q8H PRN 04/11/22 07/11/23 Unknown History onabotulinumtoxinA 100 unit 155 unit SUBCUT ONCE #2 ea 02/27/23 07/11/23 Unknown Rx solution for injection (Botox) albuterol sulfate 90 mcg/actuation 2 puff inhalation QID PRN 03/06/23 07/11/23 Unknown Rx aerosol inhaler (ProAir HFA) shortness of breath or wheezing 30 days #18 grams amitriptyline 50 mg tablet 50 mg PO .at bedtime 90 days #90 03/06/23 07/11/23 Unknown Rx tabs celecoxib 100 mg capsule 100 mg PO BID PRN pain 30 days #60 03/06/23 07/11/23 Unknown Rx caps cyclobenzaprine 10 mg tablet 10 mg PO TID PRN muscle spasm 30 03/06/23 07/11/23 Unknown Rx days #90 tabs hydrochlorothiazide 25 mg tablet 25 mg PO DAILY 90 days #90 tabs 03/06/23 07/11/23 Unknown Rx metoprolol succinate 100 mg 100 mg PO DAILY 90 days #90 tabs 03/06/23 07/11/23 Unknown Rx tablet,extended release 24 hr pantoprazole 40 mg tablet,delayed 40 mg PO BID 90 days #180 tabs 03/06/23 07/11/23 Unknown Rx release sertraline 25 mg tablet (Zoloft) 25 mg PO DAILY 90 days #90 tabs 03/06/23 07/11/23 Unknown Rx diazepam 10 mg tablet 10 mg PO ONCE PRN anxiety #2 tabs 05/02/23 07/11/23 Unknown Rx topiramate 50 mg tablet 50 mg PO BID pain 30 days #60 tabs 06/12/23 07/11/23 Unknown Rx Allergies Allergy/AdvReac Type Severity Reaction Status Date / Time Penicillins Allergy Severe ALGY-Anaphy Verified 07/11/23 11:35 laxis [facility] Anesthesia Medical History Chronic migraine Hypertension GERD (gastroesophageal reflux disease) Migraine Surgical History H/O esophagogastroduodenoscopy (11/09/19) Mild duodenitis Status post laparoscopic cholecystectomy (11/09/19) H/O foot surgery History of tubal ligation History of delivery History of dilatation and curettage History of tonsillectomy History of umbilical hernia repair Family History Mother Cancer Diabetes Father Cancer Diabetes Denies family history of Anesthesia complication Social History Smoking and tobacco/nicotine status: former use of tobacco/nicotine Second hand smoke exposure: Yes Alcohol intake: current Alcohol intake frequency: holidays/special occasions only Alcohol type: wine Substance/Drug Use: never Female Reproductive History Spontaneous abortions: No Data Anesthesia 07/27/23 07:30 07/27/23 07:30 Short CBC 07/27/23 Range/Units 07:30 WBC 9.98 (3.29-11.43) 10^3/uL Hgb 12.80 (11.27-16.99) g/dL Hct 38.3 (36-47) % MCV 85.5 (85-98) fl Plt Count 231 (157-399) 10^3/cmm Neut % (Auto) 69.5 % Neut # (Auto) 6.93 (1.8-7.7) 10^3/uL BMP 07/27/23 07:30 Sodium 141 Potassium 3.3 L Chloride 104 Carbon Dioxide 27 BUN 17 Creatinine 0.7 Glucose 116 H Calcium 9.2 Liver Function 07/27/23 Range/Units 07:30 Total Bilirubin 0.5 (0.15-1.2) mg/dL AST 24 (0-32) U/L ALT 31 (0-33) U/L Alkaline Phosphatase 162 H (35-105) U/L Albumin 3.6 (3.5-5.2) g/dL Urine 07/27/23 Range/Units 07:38 Urine Color Yellow (Yellow) Urine Appearance Clear (CLEAR) Urine pH 8 H (5-7) Ur Specific [place] 1.010 (1.005-1.030) Urine Protein Neg (Negative) Urine Glucose (UA) Norm (Normal) Urine Ketones Negative (Negative) Urine Nitrate Negative (Negative) Urine Bilirubin Neg (Negative) Ur Leukocyte Esterase Negative (Negative) Cardiac Studies: 2 Echocardiogram 11/16/22
[2023-07-27] MEDS: clindamycin 600 MG/50 ML PREMIX 100 MG IV ×2 (10:14→18:04)
[2023-07-27] MEDS: lidocaine-epi 2% 20 mL INJ INJECTION (10:35)
--- NOTE | 2023-07-27 10:53 | P.OP_ITS ---
Operative Report Date of procedure: July 27, 2023 Pre-op diagnosis: Acute appendicitis Post-op diagnosis: same Procedure done: Laparoscopic appendectomy Specimens removed/disposition: Appendix Surgeon: Danis Izquierdo DO Anesthesia: General Estimated blood loss (mL): 5 Complications: None apparent Brief History: This very pleasant 47-year-old female who presents to the hospital with acute appendicitis. Laparoscopic appendectomy was indicated. The risk benefits were explained and documented. Procedure: Patient was wheeled into the operative room and placed on the OR table in a supine position. Abdomen was inspected prepped and draped in usual sterile fashion. Time-out was performed and all present were in agreement. A 15 blade scalp was used to make a stab incision in the left upper quadrant and intra- abdominal insufflation was achieved using a Veress needle. After localizing the tissue incisions were made and a 12 millimeter trocar was placed into the umbilicus as well as a 5mm in the right lower quadrant and a 5 mm in the left lower quadrant . The appendix was identified and was mildly inflamed. I used the Voyant to ligate the mesoappendix at the base. I then used 2 PDS endo-loops to snare the base of the appendix. I then used the Voyant to ligate the appendix distally. The appendix was removed from the abdomen using an Endo- Catch bag through the umbilical incision. I examined the abdomen and no further pathology was identified. Hemostasis was noted. I then closed the um bilical site with a Josue-Amauri and 0 Vicryl suture in a figure of 8 fashion. All ports removed. Skin was washed and dried. Incisions were closed with 4 O Vicryl in a subcuticular interrupted fashion. Skin glue was applied. Patient tolerated the procedure well.
--- NOTE | 2023-07-27 11:35 | ANE.PACU2 ---
Inpatient post-anesthesia follow up: Airway intact: Yes Vital signs: Temperature 97.4 F Pulse Rate 82 Respiratory Rate 17 Blood Pressure 112/58 Pulse Oximetry 99 Oxygen Delivery Me thod Nasal Cannula Oxygen Flow Rate 2 Fraction of Inspir ed Oxygen Hydration adequate: Yes Nausea and vomiting: No Pain level: 1 Mental status: Baseline
--- NOTE | 2023-07-27 12:44 | PC.CHAP ---
Pastoral Care Encounter/Spiritual Assessment Type of Contact [] Declined time clerk visit [] Patient/Family/Request visit [] Outpatient visit [] Follow-up visit [] Physician referral [] Code/Alert [x] Routine visit [] Staff referral [] Actively dying [] Patient sleeping [] Family support [] [] Out of room [] Palliative care [] [] Receiving care in room [] Pre-surgical visit [] Trauma [] Long length of stay [] ICU visit [] Other: Relational/Emotional Strength [x] Patient feels connected with others/family/visitors/staff [] Distress [] Loneliness/isolation [] Abandonment Spirituality of Patient [x] Person of Amada [] Attends Hindu of their Amada [x] Believes in Prayer [] Reads Bible or Jainism materials [] There are Spiritual issues to be addressed Lead Burner Helper Interventions [x] Prayer [] Active listening [] Non-anxious presence [] Spiritual/emotional support [] Crisis/trauma care [] Spiritual counseling [] Bereavement support [] Provided bereavement packet [] Provided Bible/devotional materials [] Provided toy/stuffed animal, coloring book to patient or family member [] Provided Communion [] Anointing/[place] [] Salvation [] Completed spiritual assessment [] Other: Impact on Illness or Injury [] Angry [] Fearful [] Anxious [] Often cries [x] Exhaustion [] Unable to work [] Unable to attend nondenominational [] Unable to walk/stand [] Unable to read [] Unable to drive [] Unable to eat/drink [] Unable to sleep [] Unable to be with family [] Patient intubated [] Other: Summary very tired after surgery prayed with patient and two children Time spent with patient 5 min
[2023-07-27] MEDS: D5-NS 0.45% + KCL 20 mEq 20 MEQ/1,000 ML BAG 75 MEQ IV (13:15)
[2023-07-27] MEDS: pantoprazole 40 mg SDV IVP (13:16)
[2023-07-27] MEDS: heparin 5,000 unit/mL INJ 1 mL 5000 UNIT SUBCUT ×2 (13:16→22:53)
[2023-07-27] MEDS: docusate sodium 100 mg Capsule PO (18:04)
[2023-07-27] MEDS: oxyCODONE-APAP 5-325 mg Tablet 1 TAB PO ×2 (18:20→22:52)
[2023-07-28] VITALS (7 sets, daily range): BP systolic 116–136; BP diastolic 67–80; PULSE 84–94; RESP 16–18; TEMP 36.4–37; O2SAT 95–100
[2023-07-28] MEDS: ketorolac 30 mg/mL INJ IVP ×2 (00:41→07:27)
[2023-07-28] MEDS: D5-NS 0.45% + KCL 20 mEq 20 MEQ/1,000 ML BAG 75 MEQ IV (00:52)
[2023-07-28] MEDS: clindamycin 600 MG/50 ML PREMIX 100 MG IV ×2 (02:55→10:03)
[2023-07-28] MEDS: oxyCODONE-APAP 5-325 mg Tablet 1 TAB PO ×2 (05:28→10:04)
[2023-07-28] MEDS: docusate sodium 100 mg Capsule PO (09:15)
[2023-07-28] MEDS: pantoprazole 40 mg SDV IVP (10:04)
[2023-07-28] MEDS: heparin 5,000 unit/mL INJ 1 mL 5000 UNIT SUBCUT (10:04)
--- NOTE | 2023-07-28 10:22 | P.DS_ITS ---
Discharge Providers Date of Admission: 07/27/23 11:05 Date of Discharge: July 28, 2023 Attending Provider at Admission: Danis Izquierdo DO Attending Provider at Discharge: Danis Izquierdo DO Primary Care Provider: Connie Peguero MD Diagnoses at Discharge Discharge Diagnosis (1) Acute appendicitis: Status: Acute Qualifiers: Acute appendicitis type: with localized peritonitis Appendicitis abscess presence: without abscess Appendicitis gangrene presence: without gangrene Appendicitis perforation presence: without perforation Qualified Code(s): K35.30 - Acute appendicitis with localized peritonitis, without perforation or gangrene Reason for Visit Reason for Visit: right side abd pain, n/v Hospital Course Hospital Course This very pleasant 47-year-old female who presented to the hospital with acute appendicitis. She underwent laparoscopic appendectomy and was discharged home in good condition the next day Physical Exam Narrative: General : Patient is well developed , no acute distress, oriented x3 Head : Normal cephalic, a-traumatic. Ears : Pinnae and external canal are normal. Hearing is normal. Eyes : PERRLA, Sclera and injection are normal. No conjunctival discharge. Nose : Mucous membranes are without erythema. Throat : buccal mucosa is normal, gums are without significant recession or hypertrophy. Lungs : Equal chest rise bilaterally, no use of accessory muscles, trachea is midline. Cor : Rate and rhythm are normal. Abdomen : Soft, ND, appropriately tender to palpation, no g/r/m Extremities : No edema, no cyanosis or clubbing, dorsalis pedis pulses are present bilaterally, non-tender to palpation of calves. Upper extremities are normal bilaterally. Back : non-tender to palpation, no CVA tenderness. Neuro : CN II - XII intact, Upper and lower extremities have equal and full strength Discharge Data Studies Completed and Pending Completed Studies During Hospitalization Category Date Time Status CT abdomen pelvis w con* [id number] Stat Cat Scan 07/27/23 07:14 Completed Pending at discharge Category Date Time Status Pathology: Surgical [PTH] Routine Pth 07/27/23 10:49 Ordered Radiology Impressions Abdomen/Pelvis CT 07/27/23 07:14 IMPRESSION: Mild acute appendicitis. ADDENDUM: 07/27/23 0909 THIS REPORT CONTAINS FINDINGS THAT MAY BE CRITICAL TO PATIENT CARE. The findings were verbally communicated via telephone conference with LIZA BACK at 9:07 AM SALES AND RETAIL MANAGEMENT RECRUITER on 07/27/2023. The findings were acknowledged and understood. Laboratory Results WBC 9.98 10^3/uL (3.29-11.43) 07/27/23 07:30 RBC 4.48 10^6/uL (3.85-5.65) 07/27/23 07:30 Hgb 12.80 g/dL (11.27-16.99) 07/27/23 07:30 Hct 38.3 % (36-47) 07/27/23 07:30 MCV 85.5 fl (85-98) 07/27/23 07:30 MCH 28.6 pg (27-33) 07/27/23 07: MCHC 33.4 g/dL (30-55) 07/27/23 07:30 RDW 13.0 % (12.1-15.1) 07/27/23 07:30 Plt Count 231 10^3/cmm (157-399) 07/27/23 07:30 MPV 10.0 fL (7.4-10.4) 07/27/23 07:30 Neut % (Auto) 69.5 % 07/27/23 07:30 Lymph % (Auto) 17.3 % 07/27/23 07:30 Nelson % (Auto) 8.3 % 07/27/23 07:30 Eos % (Auto) 4.5 % 07/27/23 07:30 Baso % (Auto) 0.2 % 07/27/23 07:30 Neut # (Auto) 6.93 10^3/uL (1.8-7.7) 07/27/23 07:30 Lymph # (Auto) 1.7 10^3/uL (0.8-4.8) 07/27/23 07:30 Nelson # (Auto) 0.8 10^3/uL (0.2-0.9) 07/27/23 07:30 Eos # (Auto) 0.5 10^3/uL (0.0-0.8) 07/27/23 07:30 Baso # (Auto) 0.0 10^3/uL (0.0-0.1) 07/27/23 07:30 Nucleated RBC % (auto) 0 % 07/27/23 07:30 Nucleated RBCs # 0.0 /100WBC 07/27/23 07:30 Sodium 141 mmol/L (136-145) 07/27/23 07:30 Potassium 3.3 mmol/L (3.5-5.1) L 07/27/23 07:30 Chloride 104 mmol/L (98-107) 07/27/23 07:30 Carbon Dioxide 27 mmol/L (22-29) 07/27/23 07:30 Anion Gap 13.3 (5-19) 07/27/23 07:30 BUN 17 mg/dL (6-20) 07/27/23 07:30 Creatinine 0.7 mg/dL (0.5-0.9) 07/27/23 07:30 GFR Calculation 90.5 mL/min (90-130) 07/27/23 07:30 Glucose 116 mg/dL (65-115) H 07/27/23 07:30 Calculated Osmolality 295 mOsm/kg (285-295) 07/27/23 07:30 Calcium 9.2 mg/dL (8.5-10.5) 07/27/23 07:30 Total Bilirubin 0.5 mg/dL (0.15-1.2) 07/27/23 07:30 AST 24 U/L (0-32) 07/27/23 07:30 ALT 31 U/L (0-33) 07/27/23 07:30 Alkaline Phosphatase 162 U/L (35-105) H 07/27/23 07:30 Total Protein 6.8 g/dL (6.6-8.7) 07/27/23 07:30 Albumin 3.6 g/dL (3.5-5.2) 07/27/23 07:30 Globulin 3.2 g/dL (1.3-4.6) 07/27/23 07:30 Lipase 8 U/L (13-60) L 07/27/23 07:30 HCG, Qual Negative (Negative) 07/27/23 07:38 Urine Color Yellow (Yellow) 07/27/23 07:38 Urine Appearance Clear (CLEAR) 07/27/23 07:38 Urine pH 8 (5-7) H 07/27/23 07:38 Ur Specific [place] 1.010 (1.005-1.030) 07/27/23 07:38 Urine Protein Neg (Negative) 07/27/23 07:38 Urine Glucose (UA) Norm (Normal) 07/27/23 07:38 Urine Ketones Negative (Negative) 07/27/23 07:38 Urine Blood Neg (Negative) 07/27/23 07:38 Urine Nitrate Negative (Negative) 07/27/23 07:38 Urine Bilirubin Neg (Negative) 07/27/23 07:38 Prot Sulfosalicylic Acd Negative (Negative) 07/27/23 07:38 Urine Urobilinogen Norm mg/dL (Negative) 07/27/23 07:38 Ur Leukocyte Esterase Negative (Negative) 07/27/23 07:38 Procedures Performed Laparoscopic appendectomy Vitals Last Vital Signs Temp 97.5 F L 07/28/23 07:09 Pulse 88 07/28/23 07:09 Resp 16 07/28/23 10:04 BP 136/80 07/28/23 07:09 Pulse Ox 100 07/28/23 07:09 O2 Del Method Nasal Cannula 07/28/23 07:09 O2 Flow Rate 2 07/27/23 11:35 Discharge Plan Discharge Patient Disposition: Home Condition: Stable Prescriptions: New hydrocodone-acetaminophen 7.5-325 mg tablet 1 tab PO Q6H PRN (Reason: pain) Qty: 20 0RF DOK 100 mg capsule 100 mg PO BID Qty: 14 0RF clindamycin HCl 150 mg capsule 150 mg PO QID 7 Days Qty: 28 0RF Continued topiramate 50 mg tablet 50 mg PO BID 30 Days Qty: 60 2RF albuterol sulfate [ProAir HFA] 90 mcg/actuation HFA aerosol inhaler 2 puff inhalation QID PRN (Reason: shortness of breath or wheezing) 30 Days Qty: 18 5RF hydrochlorothiazide 25 mg tablet 25 mg PO DAILY 90 Days Qty: 90 1RF cyclobenzaprine 10 mg tablet 10 mg PO TID PRN (Reason: muscle spasm) 30 Days Qty: 90 5RF metoprolol succinate 100 mg tablet extended release 24 hr 100 mg PO DAILY 90 Days Qty: 90 1RF pantoprazole 40 mg tablet,delayed release (DR/EC) 40 mg PO BID 90 Days Qty: 180 1RF sertraline [Zoloft] 25 mg tablet 25 mg PO DAILY 90 Days Qty: 90 1RF Botox 100 unit recon soln 155 unit IM ONCE Qty: 2 0RF amitriptyline 50 mg tablet 50 mg PO BEDTIME Held naproxen sodium 220 mg tablet 220 mg PO Q8H PRN (Reason: Pain) Hold Instructions: Resume on 07/29/23. celecoxib 100 mg capsule 100 mg PO BID PRN (Reason: pain) 30 Days Qty: 60 5RF Hold Instructions: Resume on 07/29/23. Discharge Orders: Discharge Order (Routine); Ordered 07/28/23 Ordered By: Danis Izquierdo Referrals: Connie Peguero MD [Primary Care Provider] - 4-7 days Danis Izquierdo DO [Physician] - 2 weeks Discharge Diet: Advance as tolerated Discharge Activity: Resume usual activity Patient Instructions: Opioid Safety Activity Restrictions/Additional Instructions: Do not soak incisions underwater for 2 weeks. Shower daily. Discharge Attestations Time Spent in Discharge Care*: less than 30 min Quality Metrics Clinical Quality Measures [ No reported AMI, CVA or VTE this stay] Coding Level [facility] Care [facility] Diagn[facility] Acute appendicitis K35.30 Acute appendicitis type: with localized peritonitis Appendicitis abscess presence: without abscess Appendicitis gangrene presence: without gangrene Appendicitis perforation presence: without perforation
== END 2023-07-28 11:47 | disposition home or self-care (01) ==
LOC: ER 09:16 → OR 09:18 → MEDSURG 11:05
PROVIDERS: Admitting Provider Surgery; Emergency Provider Internal Medicine; PCP Family Medicine; Visit Provider Surgery
PROC: 0DTJ4ZZ Resection of Appendix, Percutaneous Endoscopic Approach (ICD-10-PCS; CPT 44970; principal; 2023-07-27 10:40)
DX: K35.80 Unspecified acute appendicitis (principal); I10 Essential (primary) hypertension; K21.9 Gastro-esophageal reflux disease without esophagitis; Z87.891 Personal history of nicotine dependence; J45.909 Unspecified asthma, uncomplicated
CPT/HCPCS: 44970; 74177; 80053; 81003; 81025; 83690; 85025; 88304; 96372; 96374; 96375; 99285; C9113; G0378; J0131; J0330; J1100; J1170; J1644; J1885; J2250; J2405; J2704; J3010; J3490; J7030; Q9967

== ENCOUNTER → 2023-09-04 10:36 | Outpatient (BNVA) | payer OTHER, SELFPAY | PROVIDERS: PCP Family Medicine; Visit Provider Family Medicine | DX: I10 Essential (primary) hypertension; Z13.1 Encounter for screening for diabetes mellitus | CPT/HCPCS: 80053; 83036 ==

== ENCOUNTER 2023-11-05 12:40 | Outpatient (CLI) | payer OTHER, SELFPAY ==
--- NOTE | 2023-11-05 13:00 | MR_ITS ---
WS: [id number] MRI CERVICAL SPINE NONCONTRAST TECHNIQUE: Sagittal T1, T2 and STIR imaging. Axial T2, gradient, and fiesta imaging. CLINICAL INFORMATION: M54.12 - Radiculopathy, cervical region COMPARISON: MRI 04/17/2022 FINDINGS: Chiari I malformation stable since the prior head CT 03/02/2021. Cerebellar tonsils approximately 7 mm below the foramen magnum. Normal fourth ventricle. C2-C3: Normal. C3-C4: Mild facet arthropathy. Spinal canal and foramen are patent. C4-C5: Mild facet arthropathy. Spinal canal and foramen are patent. C5-C6: Mild disc bulging with osteophytic ridging. Moderate LEFT and severe RIGHT foraminal narrowing . Moderate facet arthropathy. C6-C7: Mild disc bulging with a tiny central disc protrusion. Slight indentation on the cervical cord . Mild facet arthropathy. Mild central canal stenosis. Foramen are patent. C7-T1: Normal. Visualized brain stem structures: Normal. Prevertebral soft tissues: Normal. MR/MR cervical spin wo con* [id number] IMPRESSION: 1. Chiari I malformation unchanged since CT head 03/02/2021 2. Straightening of the normal cervical lordosis with mild central canal steno sis C5-C6 and C6-C7 worse at C6-C7 with a small central disc osteophyte protrus ion with slight indentation of the cervical cord. This is slightly progressed c ompared to 2021. 3. Moderate LEFT C5-C6 bony foraminal narrowing.
== END 2023-11-05 12:41 | disposition home or self-care (01) ==
LOC: RAD 12:40
PROVIDERS: PCP Family Medicine; Visit Provider Anesthesiology Pain Medicine
DX: M54.12 Radiculopathy, cervical region (principal); G93.5 Compression of brain; M48.02 Spinal stenosis, cervical region
CPT/HCPCS: 72141

== ENCOUNTER → 2024-02-11 09:41 | Outpatient (BNVA) | payer OTHER, SELFPAY | PROVIDERS: PCP Family Medicine; Visit Provider Physician Assistant | DX: G56.03 Carpal tunnel syndrome, bilateral upper limbs (principal) | CPT/HCPCS: 73130 ==

== ENCOUNTER → 2024-03-10 11:12 | Outpatient (BNVA) | payer OTHER, SELFPAY | PROVIDERS: PCP Family Medicine; Visit Provider Family Medicine | DX: Z13.6 Encounter for screening for cardiovascular disorders (principal); Z12.4 Encounter for screening for malignant neoplasm of cervix; N95.1 Menopausal and female climacteric states | CPT/HCPCS: 80061; 83001; 83002; 87624 ==

== ENCOUNTER 2024-04-02 10:10 | Outpatient (CLI) | payer OTHER, SELFPAY ==
--- NOTE | 2024-04-02 10:20 | MM_ITS ---
WS: [id number] VIEWS: MLO and CC views both breasts. 3D digital tomosynthesis is also included in this exam. No priors. Findings: There are scattered areas of fibroglandular density. No suspicious mass, tumor calcification or architectural distortion. MM/MM scr BI tomosynthesis [id number] Impression: BI-RADS: 2 - Benign. FOLLOW-UP: 1 Year Follow-up This mammogram was also analyzed by the Computer Aided Detection System R2 Imag e Bridge Ironworker.
== END 2024-04-02 10:11 | disposition home or self-care (01) ==
LOC: MOBLMAM 10:14
PROVIDERS: PCP Family Medicine; Visit Provider Family Medicine
DX: Z12.31 Encounter for screening mammogram for malignant neoplasm of breast (principal); R92.323 Mammographic fibroglandular density, bilateral breasts
CPT/HCPCS: 77063; 77067

== ENCOUNTER 2024-04-15 08:51 | Day surgery (SDC) | payer OTHER, SELFPAY ==
[2024-04-15] VITALS (8 sets, daily range): BP systolic 133–196; BP diastolic 66–95; PULSE 68–80; RESP 15–19; TEMP 36.1–36.6; O2SAT 98–100; BMI 46.5
[2024-04-15 09:22] LABS: OR HCG Qualitative Urine Negative (Negative)
[2024-04-15] MEDS: scopolamine 1.5 Patch 1 PATCH TRANSDERMA (09:35)
[2024-04-15] MEDS: acetaminophen 1,000 MG/100 ML PIGGYBACK 400 MG IV (09:35)
--- NOTE | 2024-04-15 09:38 | ANES.PREANE2 ---
Pre-Anesthetic Assessment Height/Weight: Height 5 ft 7 in Temp Pulse Resp BP Pulse Ox O2 Del Method 98 F 80 18 149/95 98 Room Air 04/15/24 09:24 04/15/24 09:24 04/15/24 09:24 04/15/24 09:24 04/15/24 09:24 04/15/24 09:28 Preop Diagnosis: Carpal tunnel syndrome Operation Date: 04/15/24 10:55 Proposed Procedures p Carpal Tunnel Release(Bilateral) - Alberto Ledbetter, DO Was Beta Norris taken within 24 hours: Yes Was Clonidine taken within 24 hours: N/A Social No alcohol and No tobacco Exam alert, oriented x 3, clear to auscultation bilaterally and regular rate & rhythm Airway Submandibular: within normal limits Cervical ROM: within normal limits Mallampati: Class II Dentition: full Anesthetic Plan ASA status: 3 Anesthesia: MAC Other: Denies prior issues with anesthesia NPO since yesterday History of hypertension on hydrochlorothiazide and metoprolol, BB taken yesterday Chronic back pain, tramadol MERRITT, no treatment hCG negative Bilateral carpal tunnel procedure planned, long IV placed and right saphenous Plan for MAC anesthetic Medications/Allergies Home Medications Medication Instructions Recorded Confirmed Last Taken Type naproxen sodium 220 mg tablet 220 mg PO Q8H PRN Pain 04/11/22 04/14/24 03/22/24 History albuterol sulfate 90 mcg/actuation 2 puff inhalation QID PRN 09/04/23 04/14/24 Unknown Rx aerosol inhaler (ProAir HFA) shortness of breath or wheezing 30 days #18 grams amitriptyline 50 mg tablet 50 mg PO BEDTIME 90 days #90 tabs 09/04/23 04/14/24 04/07/24 Rx celecoxib 100 mg capsule 100 mg PO BID PRN pain 30 days #60 09/04/23 04/14/24 03/22/24 Rx caps cyclobenzaprine 10 mg tablet 10 mg PO TID PRN muscle spasm 30 09/04/23 04/14/24 03/22/24 Rx days #90 tabs fluticasone propionate 50 1 spray intranasal Q12H #15.8 mL 09/04/23 04/14/24 04/13/24 Rx mcg/actuation nasal spray,suspension hydrochlorothiazide 25 mg tablet 25 mg PO DAILY 90 days #90 tabs 09/04/23 04/14/24 04/13/24 Rx metoprolol succinate 100 mg 100 mg PO DAILY 90 days #90 tabs 09/04/23 04/14/24 04/13/24 Rx tablet,extended release 24 hr pantoprazole 40 mg tablet,delayed 40 mg PO BID 90 days #180 tabs 09/04/23 04/14/24 04/13/24 Rx release topiramate 50 mg tablet 50 mg PO BID pain 30 days #60 tabs 12/19/23 04/14/24 03/22/24 Rx cetirizine 10 mg tablet 10 mg PO DAILY 04/14/24 04/14/24 04/13/24 History sertraline 25 mg tablet 25 mg PO DAILY 04/14/24 04/14/24 04/13/24 History ondansetron 4 mg disintegrating 4 mg PO Q8H PRN nausea and 04/15/24 Unknown Rx tablet vomiting 3 days #9 tabs tramadol 50 mg tablet 50 mg PO Q6H PRN pain #20 tabs 04/15/24 Unknown Rx Allergies Allergy/AdvReac Type Severity Reaction Status Date / Time Penicillins Allergy Severe ALGY-Anaphy Verified 04/14/24 13:07 laxis [facility] Anesthesia Medical History (Updated 03/10/24 @ 12:41 by Connie Peguero MD) Cervical cancer screening Chronic migraine Hypertension GERD (gastroesophageal reflux disease) Migraine Surgical History History of laparoscopic appendectomy 07/27/23 Dr Izquierdo H/O esophagogastroduodenoscopy (11/09/19) Mild duodenitis Status post laparoscopic cholecystectomy (11/09/19) H/O foot surgery History of tubal ligation History of delivery History of dilatation and curettage History of tonsillectomy History of umbilical hernia repair Family History Mother Cancer Diabetes Father Cancer Diabetes Denies family history of Anesthesia complication Social History Smoking and tobacco/nicotine status: former use of tobacco/nicotine Second hand smoke exposure: Yes Alcohol intake: current Alcohol intake frequency: holidays/special occasions only Alcohol type: wine Substance/Drug Use: never Female Reproductive History Spontaneous abortions: No Data Anesthesia Cardiac Studies: Echocardiogram 11/16/22
[2024-04-15] MEDS: sodium chloride 0.9% 1,000 ML 30 ML IV (09:48)
[2024-04-15] MEDS: ketorolac 30 mg/mL INJ IVP (09:48)
--- NOTE | 2024-04-15 09:59 | W.PM.OPSFHP ---
Same Day Surgery H&P Indication for Procedure/HPI DATE OF PROCEDURE: April 15, 2024 CHIEF COMPLAINT/INDICATIONFOR SURGICAL PROCEDURE: Bilateral carpal tunnel syndrome PREOP DIAGNOSIS: Bilateral carpal tunnel syndrome PLANNED PROCEDURE: Operation Date: 04/15/24 10:55 Proposed Procedures p Carpal Tunnel Release(Bilateral) - Alberto Ledbetter DO Medications/Allergies* Home Medications Medication Instructions Recorded Confirmed Type naproxen sodium 220 mg tablet 220 mg PO Q8H PRN Pain 04/11/22 04/14/24 History cetirizine 10 mg tablet 10 mg PO DAILY 04/14/24 04/14/24 History sertraline 25 mg tablet 25 mg PO DAILY 04/14/24 04/14/24 History Allergies/Adverse Reactions Allergy/AdvReac Type Severity Reaction Status Date / Time Penicillins Allergy Severe ALGY-Anaphy Verified 04/14/24 13:07 laxis Current Medications: Generic Name Dose Route Start Last Admin Trade Name Freq PRN Reason Stop Dose Admin Sodium Chloride 1,000 mls @ 30 mls/hr 04/15/24 09:00 04/15/24 09:48 Sodium Chloride 0.9% IV 04/16/24 08:59 30 mls/hr .Q24H TIN Administration Pertinent History/Comorbid Conditions* Medical History (Updated 03/10/24 @ 12:41 by Connie Peguero MD) Cervical cancer screening Chronic migraine Hypertension GERD (gastroesophageal reflux disease) Migraine Surgical History (Updated 08/12/23 @ 10:31 by Danis Izquierdo DO) History of laparoscopic appendectomy 07/27/23 Dr Izquierdo H/O esophagogastroduodenoscopy (11/09/19) Mild duodenitis Status post laparoscopic cholecystectomy (11/09/19) H/O foot surgery History of tubal ligation History of delivery History of dilatation and curettage History of tonsillectomy History of umbilical hernia repair Family History (Updated 09/18/19 @ 09:23 by Luis Ng) Diabetes Mother Father Cancer Mother Father Denies family history of Anesthesia complication Social History Smoking and tobacco/nicotine status: former use of tobacco/nicotine Second hand smoke exposure: Yes Alcohol intake: current Alcohol intake frequency: holidays/special occasions only Alcohol type: wine Substance/Drug Use: never Pertinent Exam Findings alert, oriented x 3, operative site marked and procedure specific exam findings negative Tinel's at the elbow Patient today has positive Tinel's and median nerve compression test at the bilateral Wrist, Please refer to detailed orthopedic examination on 02/11/2024: Bilateral Hand exam-positive Tinel's and positive Phalen's test. No thenar atrophy and no thenar muscle weakness. Full range of motion in fingers and wrist and fingers are warm and well-perfused with normal cap refill under 2 seconds. Radial pulse 2+, no intrinsic muscle weakness noted. Bilateral Elbow exam-negative Tinel's test Recommendations Surgery/Procedure today Other Plans: Plan proceed to the OR today for bilateral carpal tunnel release. Patient understands the ins and outs procedure the risk benefits complication alternatives surgery and through shared decision make elects proceed with surgical intervention at this time. All questions answered at this time Coding Level of Care Code Acute Code for [facility]
[2024-04-15] MEDS: clindamycin 900 MG/50 ML PREMIX 100 MG IV (10:07)
[2024-04-15] MEDS: ROPivacaine 0.5% SDV 30 mL 50 MG INJECTION (10:28)
[2024-04-15] MEDS: lidocaine-epi 1% 20 mL INJ 10 ML INJECTION (10:29)
--- NOTE | 2024-04-15 11:04 | P.OP_ITS ---
Operative Report Date of procedure: April 15, 2024 Surgeon: Alberto Ledbetter DO Manufacturing Engineering Manager: Angel Ledbetter PA-C: PA was necessary for assistance in this case with hand positioning to execute the procedure, retraction and protection of neurovascular structures as well as to assist with wound closure and dressing application. Procedure: Preop Diagnosis: Right Carpal Tunnel Syndrome Left carpal tunnel syndrome Post-op diagnosis: Same Procedure done: 1. Right carpal tunnel release 2. Left carpal tunnel release Surgeon: Alberto Ledbetter DO Anesthesia: MAC (Local) Estimated blood loss: [5 ]mL Tourniquet time [5 ]minutes right [7] mins left IV fluids: See anesthesia record Complications: None Findings: See operative report narrative Condition: stable Disposition: same day Brief History: Patient is a pleasant [48 ]year-old [F ] with right and left carpal tunnel syndrome. Patient has been worked up in the outpatient setting findings and physical examination consistent with this. Patient nerve conduction studies consistent with carpal tunnel syndrome. We detailed out patient's risk benefits complication alternatives with surgical and nonsurgical treatment options. Through shared decision making, patient agrees to proceed with surgical intervention of the left and right carpal tunnel release . Patient understands and agrees with current plan. All questions answered. Procedure: Patient seen and evaluated in the preoperative holding area. Consent was reviewed and signed with patient. Correct extremity was marked. Patient was seen evaluated by the anesthesia department once cleared for surgery was brought back to the operative suite. Patient was kept on [facility] in supine position all bony prominences were well-padded patient properly secured to the bed. Right upper extremity was then placed onto an armboard. A nonsterile tourniquet was applied to the RIght upper arm. Patient underwent anesthesia per the anesthesia department. Patient's Right upper extremity was then prepped and draped in standard orthopedic fashion. Final timeout performed. Patient received appropriate preoperative antibiotics. Under sterile aseptic technique patient received local anesthesia over the preplanned carpal tunnel incision site. Esmarch was used to exsanguinate the Right upper extremity and tourniquet was insufflated to 250 mmHg. A standard mini open Right carpal tunnel incision was made. Starting distally at Wayne's cardinal line in line with the fourth ray extending proximally distal to the wrist crease centered over the carpal tunnel. Sharp scalpel incision was made through skin and subcutaneous tissue. Self-retaining retractor was placed and the palmar fascia was identified. This was then split longitudinally and direct visualization of the transverse carpal ligament was then made. I then utilizing scalpel feathered through the transverse carpal ligament until I entered the floor of the transverse carpal tunnel ligament into the carpal tunnel. Next I switched to dissection scissors and completed my release of the transverse carpal ligament distally with care to protect the recurrent motor branch. I completely released into the palmar fat and until no entrapment was noted distally. Care was made to protect the superficial palmar arch during my distal dissection. Next I utilized a nasal speculum placed on top of the transverse carpal ligament and utilize this to retract the subcutaneous fat and tissue and under direct loupe magnification was able to identify the transverse carpal ligament. Next I then protected the contents of the carpal tunnel and subsequently utilizing dissection scissors under loupe magnification completely released the transverse carpal ligament proximally into the antebrachial fascia. Care was made to protect the palmar cutaneous branch by keeping my scissors curved ulnarly. Once completely released, I then placed my Dowling and had appropriate decompression of the carpal tunnel proximally as well as distally. I then inspected the contents of the carpal tunnel which showed an hourglass shape of the median nerve showing its compression. No masses were noted. Tendons appeared healthy. Wound was then thoroughly irrigated. Tourniquet deflated. Hemostasis satisfactory with bipolar electrocautery. I then closed the incision with interrupted nylon stitches. Xeroform 4 x 4's and a bulky soft dressing was applied. Drapes were all taken down and then subsequently the patient was rotated 180 degrees and an armboard was applied to the left upper extremity. I then subsequently the left upper extremity was prepped and draped in standard orthopedic fashion. Additional and final timeout was performed for the left side confirming appropriate procedure. Patient already received appropriate preoperative antibiotics. Prior to incision, I subsequently made a sterile aseptic technique injected at the preplanned incision site with local. Esmarch was used to exsanguinate the left upper extremity and tourniquet was insufflated to 250 mmHg. A standard mini open left carpal tunnel incision was made. Starting distally at Wayne's cardinal line in line with the fourth ray extending proximally distal to the wrist crease centered over the carpal tunnel. Sharp scalpel incision was made through skin and subcutaneous tissue. Self-retaining retractor was placed and the palmar fascia was identified. This was then split longitudinally and direct visualization of the transverse carpal ligament was then made. I then utilizing scalpel feathered through the transverse carpal ligament until I entered the floor of the transverse carpal tunnel ligament into the carpal tunnel. Next I switched to dissection scissors and completed my release of the transverse carpal ligament distally with care to protect the recurrent motor branch. I completely released into the palmar fat and until no entrapment was noted distally. Care was made to protect the superficial palmar arch during my distal dissection. Next I utilized a nasal speculum placed on top of the transverse carpal ligament and utilize this to retract the subcutaneous fat and tissue and under direct loupe magnification was able to identify the transverse carpal ligament. Next I then protected the contents of the carpal tunnel and subsequently utilizing dissection scissors under loupe magnification completely released the transverse carpal ligament proximally into the antebrachial fascia. Care was made to protect the palmar cutaneous branch by keeping my scissors curved ulnarly. Once completely released, I then placed my Dowling and had appropriate decompression of the carpal tunnel proximally as well as distally. I then inspected the contents of the carpal tunnel which showed an hourglass shape of the median nerve showing its compression. No masses were noted. Tendons appeared healthy. Wound was then thoroughly irrigated. Tourniquet deflated. Hemostasis satisfactory with bipolar electrocautery. I then closed the incision with interrupted nylon stitches. Xeroform 4 x 4's and a bulky soft dressing was applied. Disposition: Patient taken to PACU in stable condition recovering well. Dressing clean dry and intact. Patient will receive appropriate discharge instructions as well as pain medication postoperatively. Patient to follow-up with me in the office in 2 weeks. They understand they may be weightbearing as tolerated to the bilateral hand. Understands importance of keeping hands clean as well as avoid heavy lifting. Patient should keep incision clean dry and intact. Patient understands if any questions or concerns may contact the office.
--- NOTE | 2024-04-15 11:29 | PM.PACU ---
PACU note Narrative: Patient is a 48-year-old female that had bilateral carpal tunnel release procedure done. Patient transferred to PACU in stable condition. Pain is well controlled. Dressing on hands is dry and in place. Patient's fingers are warm and well-perfused. Patient can wiggle fingers. normal cap refill under 2 seconds. Patient has normal elbow range of motion. Unable to assess sensation due to residual localized anesthetic. Exam: awake Disposition: discharged
--- NOTE | 2024-04-15 11:30 | W.PM.BPON ---
Date of Procedure: [April 15, 2024] Surgeon: [Dr. Ledbetter DO] Traffic Controller Cable(s): [Angel Ledbetter PA-C] Procedure(s) performed: [Right carpal tunnel release and Left carpal tunnel release] Findings of the procedure(s): [Right carpal tunnel syndrome and left carpal tunnel syndrome. Procedure went well and as planned.] Estimated blood loss: [5 ml] Specimen(s) removed: [N/A] Post-operative diagnosis: [Right carpal tunnel syndrome left carpal tunnel syndrome.]
--- NOTE | 2024-04-15 12:50 | ANE.PACU2 ---
Inpatient post-anesthesia follow up: Airway intact: Yes Vital signs: Temperature 97.4 F Pulse Rate 70 Respiratory Rate 18 Blood Pressure 136/68 Pulse Oximetry 100 Oxygen Delivery Me thod Room Air Oxygen Flow Rate Fraction of Inspir ed Oxygen Hydration adequate: Yes Nausea and vomiting: No Pain level: 1 Mental status: Baseline
== END 2024-04-15 12:50 | disposition home or self-care (01) ==
PROVIDERS: Student in an Organized Health Care Education/Training Program; PCP Family Medicine; Visit Provider Student in an Organized Health Care Education/Training Program
PROC: (CPT 64721; principal; 2024-04-15 10:55)
DX: G56.03 Carpal tunnel syndrome, bilateral upper limbs (principal); I10 Essential (primary) hypertension; G89.29 Other chronic pain; M54.9 Dorsalgia, unspecified; Z79.891 Long term (current) use of opiate analgesic; G47.33 Obstructive sleep apnea (adult) (pediatric); K21.9 Gastro-esophageal reflux disease without esophagitis; Z87.891 Personal history of nicotine dependence
CPT/HCPCS: 64721; 81025; J0131; J1885; J2250; J2704; J2795; J3010; J3490; J7030

== ENCOUNTER → 2024-07-13 14:54 | Outpatient (BNVA) | payer OTHER, SELFPAY | PROVIDERS: PCP Family Medicine; Visit Provider Family Medicine | DX: I10 Essential (primary) hypertension; K21.9 Gastro-esophageal reflux disease without esophagitis | CPT/HCPCS: 80053; 80061; 85025 ==

== ENCOUNTER 2024-07-24 07:17 | Outpatient (CLI) | payer OTHER, SELFPAY ==
--- NOTE | 2024-07-24 07:15 | MR_ITS ---
WS: [id number] MRI LUMBAR SPINE NONCONTRAST TECHNIQUE: Sagittal T1, T2 and STIR imaging. Axial T1 and T2 imaging. CLINICAL INFORMATION: M54.16 - Radiculopathy, lumbar region COMPARISON: MRI 01/23/2022 FINDINGS: Mild lumbar curve. No acute compression. No high-grade central canal stenosis. L1-L2: Mild annular bulging. Spinal canal and foramen are patent. Mild facet arthropathy. L2-L3: Mild facet arthropathy. Spinal canal and foramen are patent. L3-L4: Mild annular bulging with slight narrowing LEFT subarticular recess. Mild facet arthropathy. F oramen are patent. L4-L5: Mild annular bulge with mild central canal stenosis. Slight impingement of traversing L5 nerve roots bilaterally. Moderate facet arthropathy. RIGHT foraminal protrusion with slight impingement on the exiting RIGHT L4 nerve root appears unchanged compared to previous. Central canal stenosis appea rs stable. L5-S1: Mild annular bulging. Moderate facet arthropathy. RIGHT eccentric disc osteophyte complex slig htly encroaches on the far exiting RIGHT L5 nerve root similar to previous .LEFT foramen is patent. Visualized pelvic bony structures: Normal. Paravertebral soft tissues: Normal. 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 MR/MR lumbar spine wo con* [id number] IMPRESSION: 1. Mild central canal stenosis L4-5 with impingement subarticular recess and t raversing L5 nerve roots appears stable. 2. RIGHT foraminal protrusion at L4-5 slightly impinges the exiting RIGHT L4 n erve root unchanged. 3. RIGHT eccentric disc osteophyte complex slightly encroaches on the far exit ing RIGHT L5 nerve root L5-S1. 4. Mild annular bulging L3-4 with slight narrowing LEFT subarticular recess ap pears progressed compared to previous. 5. No other significant changes.
== END 2024-07-24 07:18 | disposition home or self-care (01) ==
PROVIDERS: PCP Family Medicine; Visit Provider Nurse Practitioner Family
DX: M54.16 Radiculopathy, lumbar region (principal); M48.061 Spinal stenosis, lumbar region without neurogenic claudication; M51.26 Other intervertebral disc displacement, lumbar region; M25.78 Osteophyte, vertebrae; R93.89 Abnormal findings on diagnostic imaging of other specified body structures; M51.379 Other intervertebral disc degeneration, lumbosacral region without mention of lumbar back pain or lower extremity pain; M43.8X6 Other specified deforming dorsopathies, lumbar region; M47.896 Other spondylosis, lumbar region; M47.897 Other spondylosis, lumbosacral region; M48.02 Spinal stenosis, cervical region; M50.20 Other cervical disc displacement, unspecified cervical region
CPT/HCPCS: 72148

== ENCOUNTER 2024-07-31 15:44 | Outpatient (CLI) | payer OTHER, SELFPAY ==
--- NOTE | 2024-07-31 16:15 | USR_ITS ---
PROCEDURE INFORMATION: Exam: US Pelvis Transabdominal, Complete, and US Pelvis Transvaginal, Non-obstetric Exam date and time: 07/31/2024 4:12 PM Age: 48 years old Clinical indication: Pelvic pain; Prior surgery; Surgery date: 6+ months; Surgery type: Unsure of dates. Patient says she had precancerous cells removed from cx; Additional info: R10.31 - right lower quadrant pain, since appendectomy 1 yr TECHNIQUE: Imaging protocol: Real-time complete transabdominal and transvaginal pelvic ultrasound (non-obstetric) with image documentation. Transvaginal imaging was used for better evaluation of the endometrium, adnexa, and/or cervix. COMPARISON: CT abdomen pelvis w con* [id number] 07/27/2023 8:43 AM FINDINGS: Uterus: There are several small nabothian cysts within the cervix. Uterus measures 7.2 x 4.1 x 3.7 cm (volume 51 cc). Endometrium measures 7 mm in thickness. No focal abnormality is seen within the uterus. Right ovary/adnexa: Right ovary measures 2.6 x 1.3 x 2.0 cm (3.48 cc volume). No focal abnormality is seen within the right ovary. There is normal Doppler flow in the right ovary. Left ovary/adnexa: Left ovary measures 1.7 x 2.5 x 1.7 cm (volume 3.6 cc). On the transabdominal images possible 1 cm sized cyst or follicle seen within the left ovary but this is not confirmed on the endovaginal scanning. There is normal Doppler flow in the left ovary. Intraperitoneal space: No intraperitoneal fluid. Urinary bladder: Normal. US/US pelv w/transvag [id number] IMPRESSION: Possible small left ovarian cyst or follicle. No significant abnormality is identified.
== END 2024-07-31 15:45 | disposition home or self-care (01) ==
LOC: RAD 15:45
PROVIDERS: PCP Family Medicine; Visit Provider Family Medicine
DX: R10.31 Right lower quadrant pain (principal); N88.8 Other specified noninflammatory disorders of cervix uteri
CPT/HCPCS: 76830; 76856

== ENCOUNTER → 2024-09-28 10:19 | Outpatient (BNVA) | payer OTHER, SELFPAY | PROVIDERS: PCP Family Medicine; Visit Provider Family Medicine | DX: R30.0 Dysuria (principal) | CPT/HCPCS: 73110; 73130; 81000; 87086 ==

== ENCOUNTER 2024-10-09 10:28 | Outpatient (CLI) | payer OTHER, SELFPAY ==
--- NOTE | 2024-10-09 11:00 | US_ITS ---
WS: [id number] Complete ABDOMINAL ULTRASOUND HISTORY: R74.8 - Abnormal levels of other serum enzymes COMPARISON: Gallbladder ultrasound 10/08/2019 Liver: 16.4 cm in length. Normal size liver and echogenicity. No bile duct dilatation or mass. Portal Vein: Normal hepatopetal flow with monophasic waveform. Gallbladder: Prior cholecystectomy. CBD: 0.2 cm Pancreas: Not visualized. Right kidney: 9.7 cm x 5.8 x 4.3 cm. Cortex:1.1 cm. Normal size and echogenicity. No hydronephrosis or mass. Left kidney: 9.2 cm x 4.5 cm x 5.0 cm. Cortex: 1.3 cm. Normal size and echogenicity. No hydronephrosis or mass. Spleen: 11.9 cm. Normal size and echogenicity. Aorta and IVC: Unremarkable abdominal aorta and IVC. US/US abdomen complete* [id number] Impression: 1. Technically difficult abdominal ultrasound due to body habitus. 2. Prior cholecystectomy. 3. No intrahepatic duct dilatation. 4. No renal obstruction.
== END 2024-10-09 10:29 | disposition home or self-care (01) ==
LOC: RAD 10:29
PROVIDERS: PCP Family Medicine; Visit Provider Family Medicine
DX: R74.8 Abnormal levels of other serum enzymes (principal); Z90.49 Acquired absence of other specified parts of digestive tract
CPT/HCPCS: 76700

== ENCOUNTER → 2024-10-20 08:33 | Outpatient (BNVA) | payer OTHER, SELFPAY | PROVIDERS: PCP Family Medicine; Visit Provider Physician Assistant | DX: Z98.890 Other specified postprocedural states (principal); S69.91XA Unspecified injury of right wrist, hand and finger(s), initial encounter; W20.8XXA Other cause of strike by thrown, projected or falling object, initial encounter | CPT/HCPCS: 73110 ==

== ENCOUNTER 2024-10-30 08:09 | Outpatient (CLI) | payer OTHER, SELFPAY ==
--- NOTE | 2024-10-30 08:45 | MRR_ITS ---
PROCEDURE INFORMATION: Exam: MR Right Upper Extremity Joint Without Contrast; Wrist Exam date and time: 10/30/2024 8:52 AM Age: 48 years old Clinical indication: Injury or trauma; Blunt trauma (contusions or hematomas); Right; Injury details: Injured RT wrist 3 weeks ago, large bread bowl caught finger as it fell. PT has HX of carpal tunnel surg. In RT wrist apr 23. Pain now lifting and pplying any pressure. Swells throughout day; Prior surgery; Surgery date: 6+ months; Surgery type: Carpal tunnel mar 2024; Additional info: Right wrist injury TECHNIQUE: Imaging protocol: Magnetic resonance imaging of the right upper extremity without contrast. Exam focused on the wrist. COMPARISON: CR XR wrist RT min 3V* [id number] 10/20/2024 8:39 AM FINDINGS: Bones/joints: No acute fracture, dislocation or subluxation is seen. Scapholunate ligament: The scapholunate ligament is intact. Lunotriquetral ligament: The lunotriquetral ligament is intact. Triangular fibrocartilage complex: Tearing of the triangular fibrocartilage complex. Flexor compartment tendons: The visualized flexor tendons and the carpal tunnel are intact. The flexor retinaculum is intact. Extensor compartment tendons: Mild tendinosis of the extensor carpi ulnaris tendon. The remaining extensor tendons appear intact. Nerves: The median nerve appears unremarkable. Soft tissues: Minimal posterior subcutaneous soft tissue swelling. Guyon's canal: The contents of Guyon's canal are grossly unremarkable. MR/MR wrist RT wo con* [id number] IMPRESSION: 1. Tearing of the triangular fibrocartilage complex. 2. Mild tendinosis of the extensor carpi ulnaris tendon.
== END 2024-10-30 08:10 | disposition home or self-care (01) ==
PROVIDERS: PCP Family Medicine; Visit Provider Physician Assistant
DX: Z98.890 Other specified postprocedural states (principal); M25.431 Effusion, right wrist; S63.591A Other specified sprain of right wrist, initial encounter; M67.833 Other specified disorders of tendon, right wrist; X58.XXXA Exposure to other specified factors, initial encounter
CPT/HCPCS: 73221

== ENCOUNTER → 2024-12-15 14:29 | Outpatient (BNVA) | payer OTHER, SELFPAY | PROVIDERS: PCP Family Medicine; Visit Provider Family Medicine | DX: R30.0 Dysuria (principal) | CPT/HCPCS: 81000; 87077; 87086; 87184 ==

== ENCOUNTER 2025-01-14 09:02 | Day surgery (SDC) | payer OTHER, SELFPAY ==
[2025-01-14 09:19] VITALS: BP 162/97; PULSE 90; RESP 17; TEMP 36.7; O2SAT 95; BMI 45.4
[2025-01-14 09:26] LABS: OR HCG Qualitative Urine Negative (Negative)
--- NOTE | 2025-01-14 09:32 | P.HPUD_ITS ---
Surgery/Procedure H&P Update DATE OF PROCEDURE: January 14, 2025 DATE H&P PERFORMED: 12/24/24 H&P UPDATE INFORMATION: I have reviewed H&P completed within last 30 days, I have examined patient prior to procedure, No changes to prior documentation, H&P is in [facility] EMR on date indicated and Risks and benefits of the procedure reviewed PLANNED PROCEDURE: Operation Date: 01/14/25 10:35 Proposed Procedures p EGD EGD with Biopsy [id number] G0105 Z12.11 K21.9(Not Applicable) - Silvio Almendarez MD s Colonoscopy(Not Applicable) - Silvio Almendarez MD
--- NOTE | 2025-01-14 09:43 | ANES.PREANE2 ---
Pre-Anesthetic Assessment Height/Weight: Height 1.7 m Weight 131.542 kg Temp Pulse Resp BP Pulse Ox O2 Del Method 98.1 F 90 17 162/97 95 Room Air 01/14/25 09:19 01/14/25 09:19 01/14/25 09:19 01/14/25 09:19 01/14/25 09:19 01/14/25 09:19 Preop Diagnosis: gerd, screening Operation Date: 01/14/25 10:35 Proposed Procedures p EGD EGD with Biopsy [id number] G0105 Z12.11 K21.9(Not Applicable) - Silvio Almendarez MD s Colonoscopy(Not Applicable) - Silvio Almendarez MD Was Beta Norris taken within 24 hours: Yes Was Clonidine taken within 24 hours: N/A Last intake: Intake Last Liquid Date 01/13/25 Last Liquid Time 21:30 Last Solid Date 01/12/25 Last Solid Time 17:30 Social No alcohol and No tobacco Exam alert, oriented x 3 and regular rate & rhythm diminished Airway Submandibular: Other (TMD<3) Cervical ROM: within normal limits Mallampati: Class III Dentition: chipped and false Comments: Comments: upper dentures History/ROS No significant history except as noted Pulmonary Asthma, Exertional Dyspnea and Sleep Apnea no CPAP/Bipap CV/HEM Hypertension GI Gastroesophageal Reflux Disease Metabolic Morbid Obesity Musc/skel Lower Back Pain and Osteoarthritis/DJD Neuropsych Anxiety Anesthetic Plan ASA status: 3 Anesthesia: MAC Risk of > 500 ml blood loss (7ml/kg in children): No Medications/Allergies Home Medications ?Medication ?Instructions ?Recorded ?Confirmed ?Last Taken ?Type onabotulinumtoxinA 100 unit 155 unit IM Q90D #2 ea 04/17/24 01/11/25 Unknown Rx solution for injection (Botox) topiramate 50 mg tablet 100 mg (2 x 50 mg) PO BID pain 30 12/04/24 01/11/25 01/11/25 Rx days #120 tabs albuterol sulfate 90 mcg/actuation 2 puff inhalation QID PRN 12/15/24 01/11/25 01/09/25 Rx aerosol inhaler shortness of breath or wheezing 30 days #18 grams amitriptyline 50 mg tablet 50 mg PO BEDTIME 90 days #90 tabs 12/15/24 01/11/2525 Rx celecoxib 100 mg capsule 100 mg PO BID PRN pain 30 days #60 12/15/24 01/11/25 01/11/25 Rx caps cyclobenzaprine 10 mg tablet 10 mg PO TID PRN muscle spasm 30 12/15/24 01/11/25 01/11/25 Rx days #90 tabs fluticasone propionate 50 1 spray intranasal Q12H #15.8 mL 12/15/24 01/11/25 01/11/25 Rx mcg/actuation nasal spray,suspension pantoprazole 40 mg tablet,delayed 40 mg PO BID 90 days #180 tabs 12/15/24 01/11/25 01/11/25 Rx release cetirizine 10 mg tablet 10 mg PO DAILY 01/11/25 01/11/25 01/11/25 History hydrochlorothiazide 25 mg tablet 25 mg PO DAILY 01/11/25 01/11/25 01/11/25 History metoprolol succinate 100 mg 100 mg PO DAILY 01/11/25 01/11/25 01/11/25 History tablet,extended release 24 hr sertraline 25 mg tablet 25 mg PO DAILY 01/11/25 01/11/25 01/11/25 History Allergies Allergy/AdvReac Type Severity Reaction Status Date / Time Penicillins Allergy Severe ALGY-Anaphy Verified 01/11/25 09:43 laxis Current Medications Generic Name Dose Route Start Last Admin Trade Name Freq PRN Reason Stop Dose Admin Sodium Chloride 1,000 mls @ 15 mls/hr 01/14/25 09:10 01/14/25 09:24 Sodium Chloride 0.9% IV 01/15/25 09:09 15 mls/hr .Q24H PRN Administration COLONOSCOPY FLUIDS PFSH Anesthesia Medical History Cervical cancer screening Chronic migraine Hypertension GERD (gastroesophageal reflux disease) Migraine Surgical History History of laparoscopic appendectomy 07/27/23 Dr Izquierdo H/O esophagogastroduodenoscopy (11/09/19) Mild duodenitis Status post laparoscopic cholecystectomy (11/09/19) H/O foot surgery History of tubal ligation History of delivery History of dilatation and curettage History of tonsillectomy History of umbilical hernia repair Family History Mother Cancer Diabetes Father Cancer Diabetes Denies family history of Anesthesia complication Social History Smoking and tobacco/nicotine status: former use of tobacco/nicotine Second hand smoke exposure: Yes Alcohol intake: current Alcohol intake frequency: holidays/special occasions only Alcohol type: wine Substance/Drug Use: never Female Reproductive History Date of last menstrual period: 12/15/24 Spontaneous abortions: No Data Anesthesia Cardiac Studies: Echocardiogram 11/16/22
[2025-01-14 10:48] VITALS: BP 133/63; PULSE 93; RESP 18; TEMP 36.2; O2SAT 99
[2025-01-14 10:59] VITALS: BP 123/73; PULSE 93; RESP 19; TEMP 36.3; O2SAT 99
--- NOTE | 2025-01-14 11:22 | ANE.PACU2 ---
Inpatient post-anesthesia follow up: Airway intact: Yes Vital signs: Temperature 97.4 F Pulse Rate 93 Respiratory Rate 19 Blood Pressure 123/73 Pulse Oximetry 99 Oxygen Delivery Me thod Room Air Oxygen Flow Rate Fraction of Inspir ed Oxygen Hydration adequate: Yes Nausea and vomiting: No Pain level: 1 Mental status: Baseline
== END 2025-01-14 11:22 | disposition home or self-care (01) ==
PROVIDERS: PCP Family Medicine; Visit Provider Surgery
PROC: 0DJ08ZZ Inspection of Upper Intestinal Tract, Via Natural or Artificial Opening Endoscopic (ICD-10-PCS; principal; 2025-01-14 10:35)
PROC: 0DJD8ZZ Inspection of Lower Intestinal Tract, Via Natural or Artificial Opening Endoscopic (ICD-10-PCS; CPT 45378; 2025-01-14 10:35)
DX: Z12.11 Encounter for screening for malignant neoplasm of colon (principal); I10 Essential (primary) hypertension; K21.9 Gastro-esophageal reflux disease without esophagitis; E66.01 Morbid (severe) obesity due to excess calories; K29.50 Unspecified chronic gastritis without bleeding; Z68.42 Body mass index [BMI] 45.0-49.9, adult; K29.80 Duodenitis without bleeding; Z79.899 Other long term (current) drug therapy; Z88.0 Allergy status to penicillin; Z87.891 Personal history of nicotine dependence
CPT/HCPCS: 43239; 45378; 81025; 88305; J2704; J3490; J7030

== ENCOUNTER → 2025-03-18 16:01 | Outpatient (BNVA) | payer OTHER, SELFPAY | PROVIDERS: PCP Family Medicine; Visit Provider Nurse Practitioner | DX: R68.89 Other general symptoms and signs (principal) | CPT/HCPCS: 87400; 87426 ==

== ENCOUNTER 2025-05-04 09:41 | Outpatient (CLI) | payer OTHER, SELFPAY ==
--- NOTE | 2025-05-04 09:40 | MM_ITS ---
WS: [id number] BILATERAL 3D TOMOSYNTHESIS DIGITAL SCREENING MAMMOGRAPHY WITH CAD CLINICAL INFORMATION: SCREENING HISTORY: Screening mammogram. No current complaints. COMPARISON: 2023 TECHNIQUE: Bilateral CC and MLO views. FINDINGS: Scattered fibroglandular densities bilaterally. No suspicious focal mass, asymmetry, calcifications, or architectural distortion. No evidence of malignancy. MM/MM scr BI tomosynthesis [id number] IMPRESSION: DENSITY: There are scattered areas of fibroglandular density. BI-RADS: 1 - Negative. FOLLOW UP: 1 Year Follow-up Recommend return to annual screening mammography.
== END 2025-05-04 09:42 | disposition home or self-care (01) ==
LOC: MOBLMAM 09:42
PROVIDERS: PCP Family Medicine; Visit Provider Family Medicine
DX: Z12.31 Encounter for screening mammogram for malignant neoplasm of breast (principal); R92.323 Mammographic fibroglandular density, bilateral breasts
CPT/HCPCS: 77063; 77067

== ENCOUNTER → 2025-05-17 08:36 | Outpatient (BNVA) | payer OTHER, SELFPAY | PROVIDERS: PCP Family Medicine; Visit Provider Family Medicine | DX: R35.0 Frequency of micturition (principal); N39.0 Urinary tract infection, site not specified | CPT/HCPCS: 81000; 87077; 87086; 87184 ==

== ENCOUNTER → 2025-06-08 14:19 | Outpatient (BNVA) | payer OTHER, SELFPAY | PROVIDERS: PCP Family Medicine; Visit Provider Family Medicine | DX: Z13.220 Encounter for screening for lipoid disorders (principal); Z13.6 Encounter for screening for cardiovascular disorders; I10 Essential (primary) hypertension; R74.8 Abnormal levels of other serum enzymes; R39.89 Other symptoms and signs involving the genitourinary system | CPT/HCPCS: 80053; 80061; 81000 ==